=== PATIENT | female | born 1950 | race Caucasian/White ===

== ENCOUNTER → 2018-03-29 08:06 | Outpatient (CLI) | payer MEDICARE, OTHER, SELFPAY ==
--- NOTE | 2018-03-29 | DI.US.S_ITS ---
PROCEDURE: US PELVIC COMPLETE INDICATIONS: RIGHT PELVIC PAIN TECHNIQUE: Real-time scanning was performed of the pelvic organs, with image documentation. Additional endovaginal scanning was necessary due to incomplete visualization of the adnexal and endometrial structures by transabdominal scanning. COMPARISON: None. FINDINGS: Transabdominal scanning: Limited scanning through the kidneys shows no hydronephrosis. No pathologic free abdominal or pelvic fluid. Endovaginal scanning: Uterus: Uterus is normal in size at 4.9 x 3.2 x 4.1 cm. The endometrium measures 2.5 mm in combined thickness. Ovaries: The within normal limits bilaterally with simple cyst involving the right ovary measuring 1.5 x 1.2 x 1.9 cm. IMPRESSION: Simple cyst involving the right ovary. Dictated by: Flaco RUGGIERO Interpreted: Manny Martinez MD on 03/29/2018 at 10:24 Approved by: Manny Martinez M.D. on 03/29/2018 at 13:21
== END ==
PROVIDERS: Family Provider Family Medicine; PCP Family Medicine; Visit Provider Family Medicine
DX: N83.201 Unspecified ovarian cyst, right side (principal)
CPT/HCPCS: 76830; 76856

== ENCOUNTER → 2018-03-30 10:32 | Outpatient (CLI) | payer MEDICARE, OTHER, SELFPAY ==
[2018-03-30 11:56] LABS: Blood Urea Nitrogen 12 mg/dL (7-17); Estimated Glomerular Filt Rate > 60.0 mL/min (>60)
== END ==
PROVIDERS: PCP Family Medicine; Visit Provider Specialist
DX: R10.31 Right lower quadrant pain (principal); Z01.812 Encounter for preprocedural laboratory examination
CPT/HCPCS: 36415; 82565; 84520; 87070; 87205; 99212; G0463

== ENCOUNTER → 2018-04-01 09:50 | Outpatient (CLI) | payer MEDICARE, OTHER, SELFPAY ==
--- NOTE | 2018-04-01 | DI.CT.S_ITS ---
PROCEDURE: CT ABDOMEN PELVIS W CON INDICATIONS: CHRONIC RIGHT LOWER QUADRANT PAIN FOR 2 MONTHS TECHNIQUE: After the administration of oral and intravenous contrast, 5 mm thick sections acquired from the diaphragms to the symphysis. 5 mm thick coronal and sagittal reformats were performed. For radiation dose reduction, the following was used: automated exposure control, adjustment of mA and/or kV according to patient size. COMPARISON: None. FINDINGS: Image quality: Excellent. ABDOMEN: Lung bases: Lung bases are clear. Heart size is normal. Solid organs: Liver is normal in size and enhancement. Gallbladder is partially contracted. Biliary system is non-dilated. Pancreas enhances normally. Spleen is normal in size and enhancement. No adrenal nodules. Kidneys are normal in size and enhancement, without hydronephrosis. Peritoneum and bowel: Stomach, small bowel, and colon loops are normal in caliber and wall thickness. No free fluid or air. Normal appendix. Nodes and vessels: No retroperitoneal or mesenteric adenopathy. Aorta and inferior vena cava are normal in caliber. Miscellaneous: No ventral hernias. PELVIS: Genitourinary: Bladder wall thickness is normal. Miscellaneous: No inguinal hernias or adenopathy. Bones: No suspicious bony lesions. Mild diffuse leftward curvature of the lumbar spine. No vertebral body compression fractures. IMPRESSION: 1. No acute process. 2. Normal appendix. Dictated by: Aurea Murray M.D. on 04/01/2018 at 12:55 Approved by: Aurea Murray M.D. on 04/01/2018 at 12:57
== END ==
PROVIDERS: PCP Family Medicine; Visit Provider Specialist
DX: R10.31 Right lower quadrant pain (principal)
CPT/HCPCS: 74177; Q9967

== ENCOUNTER 2018-06-23 07:13 | Day surgery (SDC) | payer MEDICARE, OTHER, SELFPAY ==
[2018-06-23] VITALS (8 sets, daily range): BP systolic 93–128; BP diastolic 57–99; PULSE 51–62; RESP 11–17; TEMP 36.1–36.9; O2SAT 98–100; BMI 20.5
[2018-06-23] MEDS: SODIUM CHLORIDE 0.9% 1,000 ML 200 ML IV (09:19)
--- NOTE | 2018-06-23 10:16 | PM.HP.1 ---
History of Present Illness Date Patient Seen: 06/23/18 Time Patient Seen: 10:16 Chief complaint: colonoscopy [id number] Narrative: Wonderful 67-year-old lady presents today for screening colonoscopy. She reports she had a little bit of abdominal pain a couple of months ago. Her last colonoscopy was about 16 years ago. She denies any change in her bowel habits or any blood in her stool. She denies any unexplained weight loss. She needs colonoscopy as part of her health maintenance program. She does have a family history of colon polyps in a sibling but has no family history of colon cancer Patient History Family & Social History Family History: Reviewed 06/23/18 by Jessica Patel MD Social History: household members spouse Meds Home Medications Medication Instructions Recorded Confirmed Type No Known Home Medications 06/23/18 06/23/18 History Allergies Allergy/AdvReac Type Severity Reaction Status Date / Time No Known Drug Allergies Allergy Verified 06/23/18 07:44 Review of Systems Review of Systems All systems reviewed & are unremarkable except as noted in HPI and below Exam Vital Signs (past 8 hours): - 06/23/18 07:44 Temperature 97.2 F L Pulse Rate 52 L Respiratory Rate 16 Blood Pressure 128/99 H Pulse Oximetry 100 Narrative Exam Narrative: Very pleasant well-nourished well-developed 67-year-old lady who appears much younger than her stated age HEENT: Normocephalic and atraumatic, pupils equal round reactive to light accommodation with anicteric sclera Lungs: Clear auscultation bilaterally Heart: Regular rate and rhythm Abdomen: Soft, nontender, active bowel sounds Extremities: Warm well perfused Assessment & Plan Plan: Assessment/Plan Narrative: Wonderful 67-year-old lady here for screening colonoscopy. We discussed risks and benefits of the procedure and she has expressed a desire to complete it today
[2018-06-23] MEDS: MIDAZOLAM 5 MG/5 ML VIAL IV (10:43)
[2018-06-23] MEDS: fentaNYL 250 MCG/5 ML INJ IV (10:44)
--- NOTE | 2018-06-23 10:48 | PM.OP.1 ---
Operative Date/Time/Diagnoses Date of procedure: 06/23/18 Time of procedure: 10:48 Pre-op diagnosis: Screening colonoscopy Post-op diagnosis: same Procedure & Clinicians Procedure: colonoscopy to the cecum Same procedure as scheduled: Yes Indications: last colonoscopy 16 years ago Surgeon: Jessica Patel Anesthesia Type: Sedation (Versed 6 mg; fentanyl 150 mcg) Operative Notes Findings: 1. Moderately poor prep 2. No polyps or mass lesions 3. No AV malformations 4. Very mild diverticulosis limited to the sigmoid region 5. Tortuous and atonic colon 7. Grade 2 internal hemorrhoids Specimen(s): none sent Procedure in detail: After obtaining informed consent, the patient was brought to the GI suite and placed in the left lateral decubitus position on the examination table. After placement of appropriate monitors, the patient was given incremental doses of Versed and Fentanyl until an appropriate level of sedation was achieved. A time out was held per SCOAP protocol. A digital rectal examination was performed and did not reveal any masses or obstructing lesions. The colonoscope was gently passed into the patient's anus and the entire colon navigated to the level of the cecum with minimal difficulty. Once in the cecum, the scope was withdrawn being sure to go before and beyond all mucosal folds and prominences and get an excellent examination. The findings are noted above. At the level of the rectal vault, the scope was retroflexed and the internal anal canal was examined. The scope was straightened and air aspirated from the colon. The instrument was removed from the patient's body and the procedure was concluded. The patient was allowed to awaken from sedation without difficulty and taken to the post-anesthesia care unit in good condition. Total sedation time 23 min Total withdrawal time 9 min Complications: none Condition: stable Disposition: PACU Plan for aftercare: 1. Discharge to home 2. Plan for next colonoscopy in 10 years or as clinically indicated
== END 2018-06-23 11:38 | disposition home or self-care (01) ==
PROVIDERS: Surgery; Family Provider Family Medicine; PCP Family Medicine; Visit Provider Specialist
PROC: 0DJD8ZZ Inspection of Lower Intestinal Tract, Via Natural or Artificial Opening Endoscopic (ICD-10-PCS; CPT 45378; principal; 2018-06-23 08:45)
DX: Z12.11 Encounter for screening for malignant neoplasm of colon (principal); K57.30 Diverticulosis of large intestine without perforation or abscess without bleeding; K64.1 Second degree hemorrhoids
CPT/HCPCS: G0121; 99152; 99153; J2250; J3010

== ENCOUNTER → 2019-02-23 08:58 | Outpatient (CLI) | payer MEDICARE, OTHER, SELFPAY ==
--- NOTE | 2019-02-23 | DI.MG.S_ITS ---
BILATERAL DIGITAL SCREENING MAMMOGRAM 3D/2D WITH CAD: 02/23/2019 CLINICAL: Routine screening. Family history of breast cancer. Comparison is made to exams dated: 12/13/2017 mammogram, 10/12/2016 mammogram, 09/16/2015 mammogram, and 09/10/2014 mammogram - [facility]. The tissue of both breasts is extremely dense, which lowers the sensitivity of mammography. Current study was also evaluated with a Computer Aided Detection (CAD) system. No significant masses, calcifications, or other findings are seen in either breast. There has been no significant interval change. IMPRESSION: NEGATIVE There is no mammographic evidence of malignancy. A 1 year screening mammogram is recommended. This exam was interpreted at Station ID: [id number]. NOTE: For mammograms, a report in lay terms will be sent to the patient. Approximately 15% of breast malignancies will not be visualized mammographically. In the management of a palpable breast mass, a negative mammogram must not discourage biopsy of a clinically suspicious lesion. Electronically Signed By: Richard cornell/sahra:02/23/2019 12:52:22 letter sent: Normal Exam ACR BI-RADS Category 1: Negative 3341F
--- NOTE | 2019-02-23 | DI.MRI.S_ITS ---
PROCEDURE: MR KNEE LT WO CON INDICATIONS: LEFT KNEE PAIN TECHNIQUE: Noncontrast sagittal PD fast spin echo and T2 fast spin echo with fat saturation, sagittal 3-D FLASH with fat saturation; coronal T1 spin echo and PD fast spin echo with fat saturation, and axial PD fast spin echo with fat saturation through the knee. COMPARISON: None. FINDINGS: Image quality: Excellent. Menisci: Lateral meniscus intact. Medial meniscal tear involving the posterior root, posterior horn and possibly the body. There is partial extrusion. Cruciate ligaments: The anterior and posterior cruciate ligaments appear intact. Medial structures: The medial collateral ligament appears intact. The posterior oblique ligament, semimembranosus tendon insertions, oblique popliteal ligament, and meniscocapsular junction appear intact. Visualized portions of the pes anserinus tendons appear normal. No abnormal bursal fluid. Lateral structures: Mild thickening of the proximal lateral collateral ligament with internal signal change suggesting age-indeterminate low-grade sprain. Biceps femoris tendon appears intact. The popliteus tendon appears normal; the popliteofibular ligament appears intact. The posterosuperior and anteroinferior popliteomeniscal fascicles appear intact. The arcuate and fabellofibular ligaments appear intact, on either side of the lateral inferior geniculate artery. Iliotibial band appears normal. Anterior structures: Mild distal quadriceps tendinopathy and internal T2 hyperintensity. Prepatellar and superficial infrapatellar subcutaneous edema/fluid. Although, this is minimal. Patellar tendon appears intact. Hoffa's fat pad unremarkable. Patellar alignment within normal limits. Bones and cartilage: No focal marrow contusion or discrete low signal fracture line. Within the medial compartment, minimal partial-thickness loss of the femoral articular cartilage. Within the lateral compartment, the articular cartilage appears grossly intact. Within the patellofemoral compartment, diffuse surface fraying and partial-thickness loss of the patellar and femoral trochlear cartilage. There is subchondral marrow edema/cystic change. Joint space: Moderate joint effusion. Large Woodward cyst is seen measuring 6 cm in the cephalocaudad dimension. No intra-articular loose body identified. IMPRESSION: Medial meniscal tear involving the posterior root, posterior horn and body with partial extrusion. Large Woodward's cyst. Moderate joint effusion. Mild distal quadriceps insertional tendinopathy. Mild degenerative joint disease. Dictated by: Buster Kendall M.D. on 02/23/2019 at 11:15 Approved by: Buster Kendall M.D. on 02/23/2019 at 11:23
== END ==
PROVIDERS: Family Provider Family Medicine; PCP Family Medicine; Visit Provider Family Medicine
DX: Z12.31 Encounter for screening mammogram for malignant neoplasm of breast (principal); Z80.3 Family history of malignant neoplasm of breast; M25.562 Pain in left knee; S83.242A Other tear of medial meniscus, current injury, left knee, initial encounter; M71.22 Synovial cyst of popliteal space [Baker], left knee; M25.462 Effusion, left knee; M17.12 Unilateral primary osteoarthritis, left knee
CPT/HCPCS: 73721; 77063; 77067

== ENCOUNTER → 2019-02-28 07:45 | Outpatient (CLI) | payer MEDICARE, OTHER, SELFPAY ==
[2019-02-28 08:05] LABS: Add Manual Diff / Slide Review NO; Basophils Absolute Auto 0 /uL (0-100); Basophils Percent Auto 0.4 % (0-2); Eosinophils Absolute Auto 0 /uL (0-450); Eosinophils Percent Auto 1.1 % (2-4); Hematocrit 41.2 % (36-46); Hemoglobin 14.1 g/dL (12.0-16.0); Lymphocytes Absolute Auto 1700 /uL (1100-4500); Lymphocytes Percent Auto 45.6 % (25-40); Mean Corpuscular HGB Conc 34.2 % (30-36); Mean Corpuscular Hemoglobin 31.7 PG (26-34); Mean Corpuscular Volume 92.6 fL (80-100); Monocytes Absolute Auto 300 /uL (0-900); Neutrophils Absolute Auto 1700 /uL (1500-7000); Neutrophils Percent Auto 43.9 % (50-75); Platelet Count 264 X10^3/uL (150-400); Red Blood Cell Count 4.45 X10^6/uL (4.0-5.2); Red Cell Distribution Width 12.4 % (11.6-14.8); White Blood Cell Count 3.8 X10^3/uL (4.5-11.0)
[2019-02-28 08:19] LABS: Alanine Aminotransferase 22 IU/L (9-52); Albumin 4.8 g/dL (3.5-5.0); Albumin Globulin Ratio 1.4 (1.0-2.8); Alkaline Phosphatase 84 U/L (38-126); Aspartate Aminotransferase 28 IU/L (14-36); Bilirubin Total 0.5 mg/dL (0.2-1.3); Blood Urea Nitrogen 12 mg/dL (7-17); Calcium 9.5 mg/dL (8.4-10.2); Carbon Dioxide 29 mmol/L (22-32); Chloride 99 mmol/L (98-107); Cholesterol 255 mg/dL (140-199); Estimated Glomerular Filt Rate > 60.0 mL/min (>60); Globulin 3.4 g/dL (1.7-4.1); Glucose 96 mg/dL (80-110); HDL Cholesterol 71 mg/dL (40-60); HEMOLYSIS < 15 (0-50); LDL Cholesterol Calculated 161 mg/dL (<100); Potassium 4.2 mmol/L (3.4-5.1); Sodium 138 mmol/L (137-145); Total Protein 8.2 g/dL (6.3-8.2); Triglycerides 113 mg/dL (35-150)
[2019-02-28 09:46] LABS: Hep C Virus Ab w/Reflex Quant NEGATIVE s/c (NEGATIVE)
== END ==
PROVIDERS: PCP Family Medicine; Visit Provider Family Medicine
DX: E78.5 Hyperlipidemia, unspecified (principal); Z00.00 Encounter for general adult medical examination without abnormal findings
CPT/HCPCS: 36415; 80053; 80061; 85025; 86803

== ENCOUNTER → 2019-03-28 09:54 | Outpatient (CLI) | payer MEDICARE, OTHER, SELFPAY ==
--- NOTE | 2019-03-28 | DI.US.S_ITS ---
PROCEDURE: US PELVIC COMPLETE INDICATIONS: RIGHT OVARIAN CYST TECHNIQUE: Real-time scanning was performed of the pelvic organs, with image documentation. Additional endovaginal scanning was necessary due to incomplete visualization of the adnexal and endometrial structures by transabdominal scanning. COMPARISON: [facility], , US PELVIC COMPLETE, 03/29/2018, 8:18. FINDINGS: Transabdominal scanning: Limited scanning through the kidneys shows no hydronephrosis. No pathologic free abdominal or pelvic fluid. Endovaginal scanning: Uterus: Uterus is normal in size at 8.5 x 2.7 x 4.0 cm. The endometrium measures 1.6 mm in combined thickness. Complex endocervical fluid. Ovaries: Ovaries normal in size measuring 2.4 x 1.3 x 2.0 cm on the right and 2.8 x 1.8 x 1.3 cm on the left. 2 simple cysts involve the right ovary, largest measuring 1.8 cm with the smaller demonstrating a smaller daughter cyst. Left ovary is normal. There are bilateral scattered non-shadowing echogenic foci likely of no clinical significance. IMPRESSION: 1. Bilateral ovarian cysts, largest measuring up to 18 mm. Dictated by: Flaco RUGGEIRO Interpreted: Leann Brink MD on 03/28/2019 at 15:38 Approved by: Leann Brink M.D. on 03/28/2019 at 16:03
== END ==
PROVIDERS: PCP Family Medicine; Visit Provider Family Medicine
DX: N83.291 Other ovarian cyst, right side (principal); N83.202 Unspecified ovarian cyst, left side
CPT/HCPCS: 76830; 76856

== ENCOUNTER → 2020-05-22 17:03 | Outpatient (CLI) | payer MEDICARE, OTHER, SELFPAY ==
--- NOTE | 2020-05-22 17:08 | DI.US.S_ITS ---
PROCEDURE: US PELVIC COMPLETE INDICATIONS: OTHER OVARIAN CYST RIGHT SIDE SCREENING TECHNIQUE: Real-time scanning was performed of the pelvic organs, with image documentation. Additional endovaginal scanning was necessary due to incomplete visualization of the adnexal and endometrial structures by transabdominal scanning. COMPARISON: [facility], , US PELVIC COMPLETE, 03/28/2019, 10:37. FINDINGS: Transabdominal scanning: Limited scanning through the kidneys shows no hydronephrosis. No pathologic free abdominal or pelvic fluid. Endovaginal scanning: Uterus: Uterus is anteverted and anteflexed, and normal in size at 5.5 x 3.1 x 4.1 cm. The endometrium measures one mm in combined thickness. Trace fluid in the cul-de-sac. Ovaries: The left ovary measures 2.5 x 1.3 x 1.2 cm for a volume of 2.0 cc. The right ovary measures 3.7 x 1.8 x 1.9 for a volume of 6.6 cc. There is a simple cyst associated with right ovary measuring 2.2 x 1.8 x 1.3 cm. No other suspicious adnexal masses. IMPRESSION: 1. Slight enlargement of a right ovarian cyst compared to the prior study. The cyst remains simple. Annual follow-up is recommended. 2. Resolution of one of the previously seen right ovarian cysts. 3. Stable uterine morphology and normal left ovary. Dictated by: Magnolia Leo M.D. on 05/23/2020 at 8:44 Approved by: Magnolia Leo M.D. on 05/23/2020 at 8:50
--- NOTE | 2020-05-22 17:09 | DI.MG.S_ITS ---
BILATERAL DIGITAL SCREENING MAMMOGRAM 3D/2D WITH CAD: 05/22/2020 CLINICAL: Routine screening. Comparison is made to exams dated: 02/23/2019 mammogram, 12/13/2017 mammogram, and 10/12/2016 mammogram - [facility]. The tissue of both breasts is heterogeneously dense. This may lower the sensitivity of mammography. Current study was also evaluated with a Computer Aided Detection (CAD) system. There are benign calcifications in both breasts. No significant masses, calcifications, or other findings are seen in either breast. There has been no significant interval change. IMPRESSION: There is no mammographic evidence of malignancy. A 1 year screening mammogram is recommended. This exam was interpreted at Station ID: [id number]. NOTE: For mammograms, a report in lay terms will be sent to the patient. Approximately 15% of breast malignancies will not be visualized mammographically. In the management of a palpable breast mass, a negative mammogram must not discourage biopsy of a clinically suspicious lesion. Electronically Signed By: Gadiel serrano/sahra:05/22/2020 18:14:58 letter sent: Normal Exam ACR BI-RADS Category 2: Benign Finding(s) 3342F
== END ==
PROVIDERS: PCP Family Medicine; Referring Provider Family Medicine; Visit Provider Family Medicine
DX: Z12.31 Encounter for screening mammogram for malignant neoplasm of breast (principal); N83.291 Other ovarian cyst, right side
CPT/HCPCS: 76830; 76856; 77063; 77067

== ENCOUNTER → 2020-09-09 09:25 | Outpatient (CLI) | payer MEDICARE, OTHER, SELFPAY ==
[2020-09-09 10:30] LABS: Add Manual Diff / Slide Review NO; Basophils Absolute Auto 0 /uL (0-100); Basophils Percent Auto 0.4 % (0-2); Eosinophils Absolute Auto 0 /uL (0-450); Eosinophils Percent Auto 0.3 % (2-4); Hematocrit 39.1 % (36-46); Hemoglobin 13.5 g/dL (12.0-16.0); Lymphocytes Absolute Auto 1300 /uL (1100-4500); Lymphocytes Percent Auto 28.2 % (25-40); Mean Corpuscular HGB Conc 34.5 % (30-36); Mean Corpuscular Hemoglobin 32.1 PG (26-34); Mean Corpuscular Volume 92.8 fL (80-100); Monocytes Absolute Auto 400 /uL (0-900); Monocytes Percent Auto 7.8 % (3-14); Neutrophils Absolute Auto 3000 /uL (1500-7000); Neutrophils Percent Auto 63.3 % (50-75); Platelet Count 227 X10^3/uL (150-400); Red Blood Cell Count 4.21 X10^6/uL (4.0-5.2); Red Cell Distribution Width 12.2 % (11.6-14.8); White Blood Cell Count 4.7 X10^3/uL (4.5-11.0)
[2020-09-09 10:53] LABS: Alanine Aminotransferase 16 IU/L (<35); Albumin 4.4 g/dL (3.5-5.0); Albumin Globulin Ratio 1.4 (1.0-2.8); Alkaline Phosphatase 77 U/L (38-126); Aspartate Aminotransferase 25 IU/L (14-36); Bilirubin Total 0.6 mg/dL (0.2-1.3); Blood Urea Nitrogen 12 mg/dL (7-17); Calcium 9.3 mg/dL (8.4-10.2); Carbon Dioxide 31 mmol/L (22-32); Chloride 102 mmol/L (98-107); Cholesterol 222 mg/dL (140-199); Estimated Glomerular Filt Rate > 60.0 mL/min (>60); Globulin 3.2 g/dL (1.7-4.1); Glucose 102 mg/dL (80-110); HDL Cholesterol 75 mg/dL (40-60); HEMOLYSIS < 15 (0-50); LDL Cholesterol Calculated 128 mg/dL (<100); Potassium 3.7 mmol/L (3.4-5.1); Sodium 137 mmol/L (137-145); Total Protein 7.6 g/dL (6.3-8.2); Triglycerides 95 mg/dL (35-150)
[2020-09-09 15:15] LABS: Thyroid Stimulating Hormone 1.11 uIU/mL (0.47-4.68)
== END ==
PROVIDERS: PCP Family Medicine; Referring Provider Family Medicine; Visit Provider Family Medicine
DX: E78.5 Hyperlipidemia, unspecified (principal)
CPT/HCPCS: 36415; 80053; 80061; 84443; 85025

== ENCOUNTER → 2020-11-26 16:54 | Outpatient (CLI) | payer MEDICARE, OTHER, SELFPAY ==
[2020-11-26] MEDS: COVID-19 VACC #1, MRNA(MOD) 100 MCG/0.5 ML VIAL IM (17:02)
== END ==
PROVIDERS: PCP Family Medicine; Visit Provider Internal Medicine
DX: Z23 Encounter for immunization (principal)
CPT/HCPCS: 0011A; 91301

== ENCOUNTER → 2020-12-25 11:00 | Outpatient (CLI) | payer MEDICARE, OTHER, SELFPAY ==
[2020-12-25] MEDS: COVID-19 VACC #2, MRNA(MOD) 100 MCG/0.5 ML VIAL IM (11:09)
== END ==
PROVIDERS: PCP Family Medicine; Visit Provider Internal Medicine
DX: Z23 Encounter for immunization (principal)
CPT/HCPCS: 0012A; 91301

== ENCOUNTER → 2021-06-28 15:36 | Outpatient (CLI) | payer MEDICARE, OTHER, SELFPAY ==
--- NOTE | 2021-06-28 15:40 | DI.MG.S_ITS ---
BILATERAL DIGITAL SCREENING MAMMOGRAM 3D/2D WITH CAD: 06/28/2021 CLINICAL: Routine screening. Family history of breast cancer. Comparison is made to exams dated: 05/22/2020 mammogram, 02/23/2019 mammogram, and 12/13/2017 mammogram - [facility]. The tissue of both breasts is heterogeneously dense. This may lower the sensitivity of mammography. Current study was also evaluated with a Computer Aided Detection (CAD) system. There are calcifications in both breasts. No significant masses, calcifications, or other findings are seen in either breast. There has been no significant interval change. IMPRESSION: BENIGN There is no mammographic evidence of malignancy. A 1 year screening mammogram is recommended. This exam was interpreted at Station ID: [id number]. NOTE: For mammograms, a report in lay terms will be sent to the patient. Approximately 15% of breast malignancies will not be visualized mammographically. In the management of a palpable breast mass, a negative mammogram must not discourage biopsy of a clinically suspicious lesion. Electronically Signed By: Gadiel Lozano M.D. at/:06/30/2021 07:22:48 letter sent: Normal Exam ACR BI-RADS Category 2: Benign Finding(s) 3342F
== END ==
PROVIDERS: PCP Family Medicine; Referring Provider Family Medicine; Visit Provider Family Medicine
DX: Z12.31 Encounter for screening mammogram for malignant neoplasm of breast (principal); Z80.3 Family history of malignant neoplasm of breast
CPT/HCPCS: 77063; 77067

== ENCOUNTER → 2021-08-13 10:38 | Outpatient (CLI) | payer MEDICARE, OTHER, SELFPAY ==
--- NOTE | 2021-08-13 | DI.US.S_ITS ---
PROCEDURE: US PELVIC COMPLETE INDICATIONS: PAIN TECHNIQUE: Real-time scanning was performed of the pelvic organs, with image documentation. Additional endovaginal scanning was necessary due to incomplete visualization of the adnexal and endometrial structures by transabdominal scanning. COMPARISON: [facility], CT, CT ABDOMEN PELVIS W CON, 04/01/2018, 10:39. [facility], US, US PELVIC COMPLETE, 03/29/2018, 8:18. [facility], US PELVIC COMPLETE, 03/28/2019, 10:37. [facility], PELVIC COMPLETE, 05/22/2020, 17:22. FINDINGS: Uterus: Uterus is normal in size at 5.9 X 3.3 X 4 cm. The endometrium measures 2 mm in combined thickness. Ovaries: The right ovary measures 2.5 x 1.2 x 3.5 cm. Associated with the right ovary, there are 3 simple appearing cysts, with the largest measuring 2.4 x 1.3 x 1.4 cm. The left ovary measures 2.2 x 1 x 1.1 cm and demonstrates an unremarkable appearance. Prominent left adnexal vessels are seen. Other: No pathologic free abdominal or pelvic fluid. IMPRESSION: Simple appearing cysts are seen associated with the right ovary, with the largest of the cysts measuring 2.4 x 1.3 x 1.4 cm. This largest cyst measured 2.2 x 1.8 x 1.3 cm on the 2020 examination. Continued annual follow-up is recommended. Prominent left adnexal vessels are seen. Please consider adnexal varices. A Dictated by: Jason Cummings M.D. on 08/13/2021 at 11:08 Approved by: Jason Cummings M.D. on 08/13/2021 at 11:14
== END ==
PROVIDERS: PCP Family Medicine; Referring Provider Family Medicine; Visit Provider Family Medicine
DX: R10.2 Pelvic and perineal pain (principal); N83.291 Other ovarian cyst, right side
CPT/HCPCS: 76830; 76856

== ENCOUNTER → 2021-09-11 08:06 | Outpatient (CLI) | payer MEDICARE, OTHER, SELFPAY ==
[2021-09-11 09:14] LABS: Add Manual Diff / Slide Review NO; Basophils Absolute Auto 0 /uL (0-100); Basophils Percent Auto 0.4 % (0-2); Eosinophils Absolute Auto 0 /uL (0-450); Eosinophils Percent Auto 0.5 % (2-4); Hematocrit 39.6 % (36-46); Hemoglobin 13.7 g/dL (12.0-16.0); Lymphocytes Absolute Auto 1700 /uL (1100-4500); Lymphocytes Percent Auto 33.7 % (25-40); Mean Corpuscular HGB Conc 34.5 % (30-36); Mean Corpuscular Hemoglobin 31.6 PG (26-34); Mean Corpuscular Volume 91.7 fL (80-100); Monocytes Absolute Auto 300 /uL (0-900); Monocytes Percent Auto 6.6 % (3-14); Neutrophils Absolute Auto 3000 /uL (1500-7000); Neutrophils Percent Auto 58.8 % (50-75); Platelet Count 266 X10^3/uL (150-400); Red Blood Cell Count 4.32 X10^6/uL (4.0-5.2); Red Cell Distribution Width 12.5 % (11.6-14.8); White Blood Cell Count 5.2 X10^3/uL (4.5-11.0)
[2021-09-11 10:19] LABS: Alanine Aminotransferase 19 IU/L (<35); Albumin 4.5 g/dL (3.5-5.0); Albumin Globulin Ratio 1.6 (1.0-2.8); Alkaline Phosphatase 79 U/L (38-126); Aspartate Aminotransferase 27 IU/L (14-36); BUN Creatinine Ratio 14.3 (6-22); Bilirubin Total 0.6 mg/dL (0.2-1.3); Blood Urea Nitrogen 9 mg/dL (7-17); Calcium 9.4 mg/dL (8.4-10.2); Carbon Dioxide 27 mmol/L (22-32); Chloride 98 mmol/L (98-107); Cholesterol 214 mg/dL (140-199); Estimated Glomerular Filt Rate > 60.0 mL/min (>60); Globulin 2.9 g/dL (1.7-4.1); Glucose 102 mg/dL (80-110); HDL Cholesterol 84 mg/dL (40-60); HEMOLYSIS < 15 (0-50); LDL Cholesterol Calculated 114 mg/dL (<100); Potassium 3.8 mmol/L (3.4-5.1); Sodium 135 mmol/L (137-145); Total Protein 7.4 g/dL (6.3-8.2); Triglycerides 78 mg/dL (35-150)
[2021-09-11 10:44] LABS: Thyroid Stimulating Hormone 1.76 uIU/mL (0.47-4.68)
== END ==
PROVIDERS: PCP Family Medicine; Referring Provider Family Medicine; Visit Provider Family Medicine
DX: I73.00 Raynaud's syndrome without gangrene (principal); E78.5 Hyperlipidemia, unspecified; R01.1 Cardiac murmur, unspecified
CPT/HCPCS: 36415; 80053; 80061; 84443; 85025

== ENCOUNTER 2022-05-05 10:37 | Day surgery (SDC) | payer MEDICARE, OTHER, SELFPAY ==
[2022-05-05 11:07] LABS: COVID19 -Nasal RAPID Negative (Negative)
[2022-05-05] MEDS: LACTATED RINGERS 1,000 ML 200 ML IV (11:07)
[2022-05-05 11:09] VITALS: BP 136/73; PULSE 52; RESP 16; TEMP 36.8; O2SAT 100; BMI 22.3
[2022-05-05 11:20] VITALS: BMI 22.3
--- NOTE | 2022-05-05 11:51 | PM.PREOP ---
Pre-operative Note Interval Note History & Physical reviewed/Exam performed by Physician: Yes Changes to H&P: No
[2022-05-05] MEDS: MIDAZOLAM 5 MG/5 ML VIAL 6 MG IV (12:27)
[2022-05-05] MEDS: fentaNYL 250 MCG/5 ML INJ 200 MCG IV (12:27)
--- NOTE | 2022-05-05 12:43 | PM.OP.COLON ---
Operative Date/Time/Diagnoses Date of procedure: 05/05/22 Time of procedure: 12:43 Pre-op diagnosis: rectal bleeding Post-op diagnosis: other (internal hemorrhoids) Procedure & Clinicians Study performed: colonoscopy and hemorrhoidal banding Same procedure as scheduled: Yes Indications: rectal bleeding Surgeon: Jonatan Lewis Procedure Notes Procedure in detail: Medications: Conscious sedation using 6mg IV midazolam and 200mcg IV of fentanyl The history and physical was performed/updated and the patient is ASA class is 2. The procedure was discussed in detail with the patient. Potential risks complications including infection, bleeding, missed diagnosis, perforation, need for surgery, and were explained. Their questions were answered and informed consent was obtained. Patient was brought to the procedure room and placed standard monitoring equipment. The patient's vital signs were monitored continuously throughout the entire procedure. Prior to starting time-out was performed. The patient was placed in the left lateral recumbent position. Procedural sedation was administered. Examination began with a thorough inspection of the perianal area there was no evidence of fissures, fistulae, external hemorrhoids or cutaneous malignancy. The colonoscopy scope was then placed into the anal canal and was advanced to the cecum, which was identified by the ileocecal valve, the appendiceal orifice and the confluence of the taenia. The scope was then slowly withdrawn examining colon thoroughly in all directions, irrigating it of any residual stool. FINDINGS 1. Tortuous colon 2. Internal hemorrhoids 3. No masses or polyps The patient tolerated the procedure well. They will be discharged once criteria are met. The prep was of good/excellent quality. The withdrawl time was 10 minutes. The sedation time was 30minutes. Following completion of the colonoscopy a hemorrhoidal banding was performed. The left lateral and right posterior columns were prominent grade 2 hemorrhoids. They were individually grasped and then doubly ligated at their bases. She tolerated procedure well. Specimen(s): none sent Complications: none Impression: Internal hemorrhoids Post-procedure Recommendations: Colonoscopy in 10 years and High fiber diet Disposition: same day surgery
[2022-05-05 12:44] VITALS: BP 117/63; PULSE 53; RESP 17; TEMP 36.2; O2SAT 97
[2022-05-05 12:49] VITALS: BP 109/63; PULSE 52; RESP 12; O2SAT 97
[2022-05-05 12:54] VITALS: BP 116/63; PULSE 49; RESP 10; TEMP 36.6; O2SAT 97
[2022-05-05 13:03] VITALS: BP 117/62; PULSE 48; RESP 16; TEMP 36.6; O2SAT 97
--- NOTE | 2022-05-05 13:14 | SUR.PHASEII ---
Discharge instructions reviewed with pt and she verbalized understanding.
--- NOTE | 2022-05-05 13:21 | SUR.PHASEII ---
pt feeling nauseous. Debbie HILL notified and verbal for 4mg zofran PO taken.
[2022-05-05] MEDS: ONDANSETRON 4 MG ODT PO (13:27)
== END 2022-05-05 13:57 | disposition home or self-care (01) ==
PROVIDERS: PCP Family Medicine; Referring Provider Surgery; Visit Provider Surgery
PROC: 0DJD8ZZ Inspection of Lower Intestinal Tract, Via Natural or Artificial Opening Endoscopic (ICD-10-PCS; CPT 45378; principal; 2022-05-05 11:45)
DX: K64.1 Second degree hemorrhoids (principal); Z20.822 Contact with and (suspected) exposure to COVID-19
CPT/HCPCS: 45398; 87635; 99152; 99153; C9803; J2250; J3010

== ENCOUNTER → 2022-08-12 09:54 | Outpatient (CLI) | payer MEDICARE, OTHER, SELFPAY ==
--- NOTE | 2022-08-12 | DI.MG.S_ITS ---
BILATERAL DIGITAL SCREENING MAMMOGRAM 3D/2D WITH CAD: 08/12/2022 CLINICAL: Routine screening. Family history of breast cancer. Comparison is made to exams dated: 06/28/2021 mammogram, 05/22/2020 mammogram, 02/23/2019 mammogram, 12/13/2017 mammogram, and 10/12/2016 mammogram - [facility]. Both breasts are heterogeneously dense, which may obscure small masses (category c / 51-75% glandular tissue). Current study was also evaluated with a Computer Aided Detection (CAD) system. There are benign post operative findings in the right breast. No significant masses, calcifications, or other findings are seen in either breast. There has been no significant interval change. IMPRESSION: BENIGN There is no mammographic evidence of malignancy. A 1 year screening mammogram is recommended. Based on Tyrer-Cuzick model (a risk assessment model), the patient's lifetime risk is 32.2% and her 10 year risk is 20.4%. If a patient has an elevated risk, a more comprehensive evaluation should be considered and/or a referral to a genetic counselor. The [place] [employer], [employer], and NCCN Guidelines advise the consideration of Breast MRI as an adjunct to screening mammography in patients whose Lifetime risk to develop breast cancer is 20% or higher. This exam was interpreted at Station ID: [id number]. NOTE: For mammograms, a report in lay terms will be sent to the patient. Approximately 15% of breast malignancies will not be visualized mammographically. In the management of a palpable breast mass, a negative mammogram must not discourage biopsy of a clinically suspicious lesion. Electronically Signed By: Timothy howard/sahra:08/12/2022 13:44:22 letter sent: Normal Exam ACR BI-RADS Category 2: Benign Finding(s) 3342F
== END ==
PROVIDERS: Family Provider Family Medicine; PCP Family Medicine; Referring Provider Family Medicine; Visit Provider Family Medicine
DX: Z12.31 Encounter for screening mammogram for malignant neoplasm of breast (principal); Z80.3 Family history of malignant neoplasm of breast
CPT/HCPCS: 77063; 77067

== ENCOUNTER 2022-09-23 09:00 | Outpatient (RCR) | payer MEDICARE, OTHER, SELFPAY ==
--- NOTE | 2022-08-14 21:25 | PT.OIE ---
Current Diagnoses Other muscle spasm (08/14/22) Past Medical History (Last Reviewed 04/21/22 @ 16:09 by Jonatan Lewis MD) Hearing loss Ovarian cyst Tremor of left hand Past Surgical History (Last Reviewed 04/21/22 @ 16:09 by Jonatan Lewis MD) H/O breast biopsy History of tonsillectomy Visit Care Team Role Provider Type Gita Noel MD Family Provider Physician Primary Care Provider Specialty: Family Practice Address: [address] [place] [address], [facility] [place], [place], [facility] Email: [email or web address] Lizbeth Dumas MD Attending Provider Non-Staff Referring Provider Specialty: Medical Address: [address] [place] [address], [facility] Email: Physical Therapy Initial Evaluation PT-OP-A Visit Information Start: 08/13/22 21:32 Freq: Status: Active Protocol: Document 08/14/22 08:15 AMB (Rec: 08/14/22 14:26 AMB [id number]) Out-Patient Physical Therapy Visit Information Visit Information Visit Type Initial Evaluation Visit Start Time 08:15 Visit Stop Time 09:00 Total Visit Minutes 45 Visit Number 1 PT-OP-B Current Condition Start: 08/13/22 21:32 Freq: Status: Active Protocol: Document 08/14/22 08:20 AMB (Rec: 08/14/22 08:59 AMB [id number]) Current Condition History of Current Condition Onset Date 05/05/22 Current Complaints Painful anus s/p surgery History of Current Condition Had a colonoscopy and banded internal hemhorroids and then had an anal fissure. Fissure is healed now but still having discomfort riding the bike and can linger for a while, the next day is feeling ok. No painful bowel movements currently. Is wondering if she has prolapse. Surgery for urethral sling is 15-20 years old and was having urinary leaking before that. Did have natural childbirth, no tearing or instrument assistance. Stinging in the anus frequent but not constant . Worse after riding the bike or sitting. Personal Factors Other Personal Factors That May Effect External hemorrhoid s/p Therapy/Recovery colonoscopy PT-OP-I Pelvic Floor Start: 08/13/22 21:32 Freq: Status: Active Protocol: Document 08/14/22 08:15 AMB (Rec: 08/14/22 14:26 AMB [id number]) Pelvic Floor Assessment Bowel Bowel Surgery Yes: colonoscopy Pelvic Clock Inter-Rectal Assessment Good contraction for 5 sec. Pain R>L, forward flexed coccyx. Comments Pelvic Floor Comments Denies current pain with BM or constipation, but was previously painful. Scoliosis with L shoulder high. PT-OP-T Assessment and Plan Start: 08/13/22 21:32 Freq: Status: Active Protocol: Document 08/14/22 08:15 AMB (Rec: 08/16/22 21:25 AMB [id number]) Physical Therapy Assessment Rehab Potential Rehabilitation Potential Good Evaluation Complexity Number of Personal Factors/Comorbidities 1-2 Number of Body Systems Impaired 1-2 Clinical Presentation at Evaluation Stable Goals One Impairment Pain Short Term Goal (STG) Karuna will move from sit to stand without pain. STG Duration 4 weeks Penitentiary Goal (LTG) Karuna will go on a 20 mile bike ride without anal pain. LTG Duration 8 weeks Assessment Summary Assessment Karuna attends physical therapy with anus pain described as stinging, especially with bike riding, but also just throughout the day since she had an anal fissure. The fissure is now healed, but scar tissue was palpable and tender. She does have a history of stress urinary incontinence for which she had a urethral sling procedure multiple decades ago , which is no longer especially sufficient for her symptoms. Her rectal tone was good, but she did have pain with palpation over internal scar tissue and will benefit from physical therapy to help her manage her rectal pain and scar tissue. Physical Therapy Plan Frequency and Duration Frequency of Treatment 2x/Week Duration of treatment (weeks) 8 Plan of Care Start Date 08/14/22 Plan of Care End Date 10/09/22 Therapeutic Interventions Therapeutic Interventions Home Exercise Program,Manual Therapy,Neuromuscular Re- education,Self-Care/Home Management,Therapeutic Activities,Therapeutic Exercises Modalities Biofeedback,Cold Pack/Ice Massage,Electric Stimulation, Hot Packs Next Visit Focus/Plan Next Note Type Treatment Note Next Visit Plan Recheck scar tissue and coccyx alignment, progress hip opening
--- NOTE | 2022-08-14 21:26 | PT.OPPOC ---
Physical, Occupational & Speech Therapy At [facility] Current Diagnoses Other muscle spasm (08/14/22) Visit Care Team Role Provider Type Gita Noel MD Family Provider Physician Primary Care Provider Specialty: Family Practice Address: [address] [place] [address], [id number] Email: [email or web address] Lizbeth Dumas MD Attending Provider Non-Staff Referring Provider Specialty: Medical Address: [address] [place] [address], [id number] Email: Plan Of Care PT-OP-T Assessment and Plan Start: 08/13/22 21:32 Freq: Status: Active Protocol: Document 08/14/22 08:15 AMB (Rec: 08/16/22 21:25 AMB [id number]) Physical Therapy Assessment Rehab Potential Rehabilitation Potential Good Evaluation Complexity Number of Personal Factors/Comorbidities 1-2 Number of Body Systems Impaired 1-2 Clinical Presentation at Evaluation Stable Goals One Impairment Pain Short Term Goal (STG) Karuna will move from sit to stand without pain. STG Duration 4 weeks Steam Blocker Goal (LTG) Karuna will go on a 20 mile bike ride without anal pain. LTG Duration 8 weeks Assessment Summary Assessment Karuna attends physical therapy with anus pain described as stinging, especially with bike riding, but also just throughout the day since she had an anal fissure. The fissure is now healed, but scar tissue was palpable and tender. She does have a history of stress urinary incontinence for which she had a urethral sling procedure multiple decades ago , which is no longer especially sufficient for her symptoms. Her rectal tone was good, but she did have pain with palpation over internal scar tissue and will benefit from physical therapy to help her manage her rectal pain and scar tissue. Physical Therapy Plan Frequency and Duration Frequency of Treatment 2x/Week Duration of treatment (weeks) 8 Plan of Care Start Date 08/14/22 Plan of Care End Date 10/09/22 Therapeutic Interventions Therapeutic Interventions Home Exercise Program,Manual Therapy,Neuromuscular Re- education,Self-Care/Home Management,Therapeutic Activities,Therapeutic Exercises Modalities Biofeedback,Cold Pack/Ice Massage,Electric Stimulation, Hot Packs Next Visit Focus/Plan Next Note Type Treatment Note Next Visit Plan Recheck scar tissue and coccyx alignment, progress hip opening Plan of Care Dates Plan of Care Start Date 08/14/22 Plan of Care End Date 10/09/22 Electronically Signed by: Kaitlin Silva, PT 08/16/22 0189 If you are in agreement with this Plan of Care, please return a signed and dated copy. I have reviewed this Plan of Care and certify that the skilled therapy services above are required to meet the patient?s needs. Physician Signature Date Printed Name and Credentials Clinical Instructor Signature Printed Name and Credentials
--- NOTE | 2022-08-19 14:13 | PT.OTN ---
Current Diagnoses Other muscle spasm (08/19/22) Physical Therapy Treatment Note PT-OP-A Visit Information Start: 08/13/22 21:32 Freq: Status: Active Protocol: Document 08/19/22 08:14 AMB (Rec: 08/19/22 09:01 AMB [id number]) Out-Patient Physical Therapy Visit Information Visit Information Visit Type Treatment Note Visit Start Time 08:15 Visit Stop Time 09:00 Total Visit Minutes 45 Visit Number 2 PT-OP-B Current Condition Start: 08/13/22 21:32 Freq: Status: Active Protocol: Document 08/14/22 08:20 AMB (Rec: 08/14/22 08:59 AMB [id number]) Current Condition History of Current Condition Onset Date 05/05/22 Current Complaints Painful anus s/p surgery History of Current Condition Had a colonoscopy and banded internal hemheroids and then had an anal fissure. Fissure is healed now but still having discomfort riding the bike and can linger for a while, the next day is feeling ok. No painful bowel movements currently. Is wondering if she has prolapse. Surgery for urethral sling is 15-20 years old and was having urinary leaking before that. Did have natural childbirth, no tearing or instrument assistance. Stinging in the anus frequent but not constant . Worse after riding the bike or sitting. Personal Factors Other Personal Factors That May Effect External hemorrhoid s/p Therapy/Recovery colonoscopy PT-OP-C Subjective Start: 08/13/22 21:32 Freq: Status: Active Protocol: Document 08/19/22 08:14 AMB (Rec: 08/19/22 09:01 AMB [id number]) OP-PT Subjective Patient Comments Patient Comments Stinging worse with bike riding. PT-OP-I Pelvic Floor Start: 08/13/22 21:32 Freq: Status: Active Protocol: Document 08/14/22 08:15 AMB (Rec: 08/14/22 14:26 AMB [id number]) Pelvic Floor Assessment Bowel Bowel Surgery Yes: colonoscopy Pelvic Clock Inter-Rectal Assessment Good contraction for 5 sec. Pain R>L, forward flexed coccyx. Comments Pelvic Floor Comments Denies current pain with BM or constipation, but was previously painful. Scoliosis with L shoulder high. PT-OP-Q Treatments Start: 08/13/22 21:32 Freq: Status: Active Protocol: Document 08/19/22 08:15 AMB (Rec: 08/19/22 14:13 AMB [id number]) Manual Therapy Treatment Soft Tissue Mobilization 1 Body Location obturator Mobilization Type Cross-Friction,Myofascial Release,Sustained Pressure Joint Mobilizations coccyx Direction AP Grade II Body Position Sidelying PT-OP-T Assessment and Plan Start: 08/13/22 21:32 Freq: Status: Active Protocol: Document 08/19/22 08:15 AMB (Rec: 08/19/22 14:13 AMB [id number]) Physical Therapy Assessment Goals One Impairment Pain Short Term Goal (STG) Karuna will move from sit to stand without pain. STG Duration 4 weeks Green Marketer Goal (LTG) Karuna will go on a 20 mile bike ride without anal pain. LTG Duration 8 weeks Assessment Summary Assessment Karuna tolerated internal release well, less restriction today than at eval. Stinging continues with bicycle. Physical Therapy Plan Next Visit Focus/Plan Next Note Type Treatment Note Next Visit Plan Recheck scar tissue and coccyx alignment, progress hip opening
--- NOTE | 2022-08-28 12:00 | PT.OTN ---
Current Diagnoses Other muscle spasm (08/28/22) Physical Therapy Treatment Note PT-OP-A Visit Information Start: 08/13/22 21:32 Freq: Status: Active Protocol: Document 08/28/22 11:17 AMB (Rec: 08/28/22 11:56 AMB [id number]) Out-Patient Physical Therapy Visit Information Visit Information Visit Type Treatment Note Visit Start Time 11:15 Visit Stop Time 12:00 Total Visit Minutes 45 Visit Number 3 PT-OP-B Current Condition Start: 08/13/22 21:32 Freq: Status: Active Protocol: Document 08/14/22 08:20 AMB (Rec: 08/14/22 08:59 AMB [id number]) Current Condition History of Current Condition Onset Date 05/05/22 Current Complaints Painful anus s/p surgery History of Current Condition Had a colonoscopy and banded internal hemheroids and then had an anal fissure. Fissure is healed now but still having discomfort riding the bike and can linger for a while, the next day is feeling ok. No painful bowel movements currently. Is wondering if she has prolapse. Surgery for urethral sling is 15-20 years old and was having urinary leaking before that. Did have natural childbirth, no tearing or instrument assistance. Stinging in the anus frequent but not constant . Worse after riding the bike or sitting. Personal Factors Other Personal Factors That May Effect External hemorrhoid s/p Therapy/Recovery colonoscopy PT-OP-C Subjective Start: 08/13/22 21:32 Freq: Status: Active Protocol: Document 08/28/22 11:17 AMB (Rec: 08/28/22 11:56 AMB [id number]) OP-PT Subjective Patient Comments Patient Comments Yesterday was good, another day was worse. Long bike ride continues to cause increased smptoms the rest of the day. PT-OP-I Pelvic Floor Start: 08/13/22 21:32 Freq: Status: Active Protocol: Document 08/14/22 08:15 AMB (Rec: 08/14/22 14:26 AMB [id number]) Pelvic Floor Assessment Bowel Bowel Surgery Yes: colonoscopy Pelvic Clock Inter-Rectal Assessment Good contraction for 5 sec. Pain R>L, forward flexed coccyx. Comments Pelvic Floor Comments Denies current pain with BM or constipation, but was previously painful. Scoliosis with L shoulder high. PT-OP-Q Treatments Start: 08/13/22 21:32 Freq: Status: Active Protocol: Document 08/28/22 11:15 AMB (Rec: 08/30/22 10:49 AMB [id number]) Manual Therapy Treatment Soft Tissue Mobilization 1 Body Location obturator Mobilization Type Cross-Friction,Myofascial Release,Sustained Pressure PT-OP-T Assessment and Plan Start: 08/13/22 21:32 Freq: Status: Active Protocol: Document 08/28/22 12:49 AMB (Rec: 08/28/22 13:44 AMB [id number]) Physical Therapy Assessment Goals One Impairment Pain Short Term Goal (STG) Karuna will move from sit to stand without pain. STG Duration 4 weeks Senior Living Goal (LTG) Karuna will go on a 20 mile bike ride without anal pain. LTG Duration 8 weeks Assessment Summary Assessment Karuna continues to have stinging with manual therapy. Most at 4-6 level. Continues to want to work on releasing spasm. Physical Therapy Plan Next Visit Focus/Plan Next Note Type Treatment Note Next Visit Plan Recheck scar tissue and coccyx alignment, progress hip opening
--- NOTE | 2022-09-02 13:06 | PT.OTN ---
Current Diagnoses Other muscle spasm (09/02/22) Physical Therapy Treatment Note PT-OP-A Visit Information Start: 08/13/22 21:32 Freq: Status: Active Protocol: Document 09/02/22 09:04 AMB (Rec: 09/02/22 10:09 AMB [id number]) Out-Patient Physical Therapy Visit Information Visit Information Visit Type Treatment Note Visit Start Time 09:00 Visit Stop Time 09:45 Total Visit Minutes 45 Visit Number 4 PT-OP-B Current Condition Start: 08/13/22 21:32 Freq: Status: Active Protocol: Document 08/14/22 08:20 AMB (Rec: 08/14/22 08:59 AMB [id number]) Current Condition History of Current Condition Onset Date 05/05/22 Current Complaints Painful anus s/p surgery History of Current Condition Had a colonoscopy and banded internal hemheroids and then had an anal fissure. Fissure is healed now but still having discomfort riding the bike and can linger for a while, the next day is feeling ok. No painful bowel movements currently. Is wondering if she has prolapse. Surgery for urethral sling is 15-20 years old and was having urinary leaking before that. Did have natural childbirth, no tearing or instrument assistance. Stinging in the anus frequent but not constant . Worse after riding the bike or sitting. Personal Factors Other Personal Factors That May Effect External hemorrhoid s/p Therapy/Recovery colonoscopy PT-OP-C Subjective Start: 08/13/22 21:32 Freq: Status: Active Protocol: Document 09/02/22 13:02 AMB (Rec: 09/02/22 13:06 AMB [id number]) OP-PT Subjective Patient Comments Patient Comments Karuna reports felt improvement in sx for next two days after last PT visit, did go on a bike ride yesterday and it was painful. PT-OP-I Pelvic Floor Start: 08/13/22 21:32 Freq: Status: Active Protocol: Document 08/14/22 08:15 AMB (Rec: 08/14/22 14:26 AMB [id number]) Pelvic Floor Assessment Bowel Bowel Surgery Yes: colonoscopy Pelvic Clock Inter-Rectal Assessment Good contraction for 5 sec. Pain R>L, forward flexed coccyx. Comments Pelvic Floor Comments Denies current pain with BM or constipation, but was previously painful. Scoliosis with L shoulder high. PT-OP-Q Treatments Start: 08/13/22 21:32 Freq: Status: Active Protocol: Document 09/02/22 13:02 AMB (Rec: 09/02/22 13:06 AMB [id number]) Manual Therapy Treatment Soft Tissue Mobilization 1 Body Location obturator Mobilization Type Cross-Friction,Myofascial Release,Sustained Pressure PT-OP-T Assessment and Plan Start: 08/13/22 21:32 Freq: Status: Active Protocol: Document 09/02/22 13:02 AMB (Rec: 09/02/22 13:06 AMB [id number]) Physical Therapy Assessment Goals One Impairment Pain Short Term Goal (STG) Karuna will move from sit to stand without pain. STG Duration 4 weeks Long-Term Goal (LTG) Karuna will go on a 20 mile bike ride without anal pain. LTG Duration 8 weeks Assessment Summary Assessment Karuna continues to have more tenderness R vs L but it is improving with manual stretching. Physical Therapy Plan Frequency and Duration Frequency of Treatment 2x/Week Duration of treatment (weeks) 8 Plan of Care Start Date 08/14/22 Plan of Care End Date 10/09/22 Next Visit Focus/Plan Next Note Type Treatment Note Next Visit Plan Recheck scar tissue and coccyx alignment, progress hip opening
--- NOTE | 2022-09-09 21:07 | PT.OTN ---
Current Diagnoses Other muscle spasm (09/09/22) Physical Therapy Treatment Note PT-OP-A Visit Information Start: 08/13/22 21:32 Freq: Status: Active Protocol: Document 09/09/22 09:01 AMB (Rec: 09/09/22 09:45 AMB [id number]) Out-Patient Physical Therapy Visit Information Visit Information Visit Type Treatment Note Visit Start Time 09:00 Visit Stop Time 09:45 Total Visit Minutes 45 Visit Number 5 PT-OP-B Current Condition Start: 08/13/22 21:32 Freq: Status: Active Protocol: Document 08/14/22 08:20 AMB (Rec: 08/14/22 08:59 AMB [id number]) Current Condition History of Current Condition Onset Date 05/05/22 Current Complaints Painful anus s/p surgery History of Current Condition Had a colonoscopy and banded internal hemheroids and then had an anal fissure. Fissure is healed now but still having discomfort riding the bike and can linger for a while, the next day is feeling ok. No painful bowel movements currently. Is wondering if she has prolapse. Surgery for urethral sling is 15-20 years old and was having urinary leaking before that. Did have natural childbirth, no tearing or instrument assistance. Stinging in the anus frequent but not constant . Worse after riding the bike or sitting. Personal Factors Other Personal Factors That May Effect External hemorrhoid s/p Therapy/Recovery colonoscopy PT-OP-C Subjective Start: 08/13/22 21:32 Freq: Status: Active Protocol: Document 09/09/22 09:00 AMB (Rec: 09/10/22 21:07 [facility] [id number]) OP-PT Subjective Patient Comments Patient Comments Continued improvement noted, continues to have pain especially with bike riding but pain is less intense and continues to feel better after PT. PT-OP-I Pelvic Floor Start: 08/13/22 21:32 Freq: Status: Active Protocol: Document 08/14/22 08:15 AMB (Rec: 08/14/22 14:26 AMB [id number]) Pelvic Floor Assessment Bowel Bowel Surgery Yes: colonoscopy Pelvic Clock Inter-Rectal Assessment Good contraction for 5 sec. Pain R>L, forward flexed coccyx. Comments Pelvic Floor Comments Denies current pain with BM or constipation, but was previously painful. Scoliosis with L shoulder high. PT-OP-Q Treatments Start: 08/13/22 21:32 Freq: Status: Active Protocol: Document 09/09/22 09:00 AMB (Rec: 09/10/22 21:07 AMB [id number]) Manual Therapy Treatment Soft Tissue Mobilization 1 Body Location obturator Mobilization Type Cross-Friction,Myofascial Release,Sustained Pressure Comments rectally PT-OP-T Assessment and Plan Start: 08/13/22 21:32 Freq: Status: Active Protocol: Document 09/09/22 09:00 AMB (Rec: 09/10/22 21:07 AMB [id number]) Physical Therapy Assessment Goals One Impairment Pain Short Term Goal (STG) Karuna will move from sit to stand without pain. STG Duration 4 weeks Senior Living Goal (LTG) Karuna will go on a 20 mile bike ride without anal pain. LTG Duration 8 weeks Assessment Summary Assessment Karuna's tenderness is improving, pt feels that PT is helpful is tolerating more stretching working deeper into musculature rather than just more superficial scar tissue. Physical Therapy Plan Frequency and Duration Frequency of Treatment 2x/Week Duration of treatment (weeks) 8 Plan of Care Start Date 08/14/22 Plan of Care End Date 10/09/22 Therapeutic Interventions Therapeutic Interventions Home Exercise Program,Manual Therapy,Neuromuscular Re- education,Self-Care/Home Management,Therapeutic Activities,Therapeutic Exercises Modalities Biofeedback,Cold Pack/Ice Massage,Electric Stimulation, Hot Packs Next Visit Focus/Plan Next Note Type Treatment Note Next Visit Plan Recheck scar tissue and coccyx alignment, progress hip opening
--- NOTE | 2022-09-16 12:52 | PT.OTN ---
Current Diagnoses Other muscle spasm (09/16/22) Physical Therapy Treatment Note PT-OP-A Visit Information Start: 08/13/22 21:32 Freq: Status: Active Protocol: Document 09/16/22 09:09 AMB (Rec: 09/16/22 09:48 AMB [id number]) Out-Patient Physical Therapy Visit Information Visit Information Visit Type Treatment Note Visit Start Time 09:00 Visit Stop Time 09:45 Total Visit Minutes 45 Visit Number 6 PT-OP-B Current Condition Start: 08/13/22 21:32 Freq: Status: Active Protocol: Document 08/14/22 08:20 AMB (Rec: 08/14/22 08:59 AMB [id number]) Current Condition History of Current Condition Onset Date 05/05/22 Current Complaints Painful anus s/p surgery History of Current Condition Had a colonoscopy and banded internal hemheroids and then had an anal fissure. Fissure is healed now but still having discomfort riding the bike and can linger for a while, the next day is feeling ok. No painful bowel movements currently. Is wondering if she has prolapse. Surgery for urethral sling is 15-20 years old and was having urinary leaking before that. Did have natural childbirth, no tearing or instrument assistance. Stinging in the anus frequent but not constant . Worse after riding the bike or sitting. Personal Factors Other Personal Factors That May Effect External hemorrhoid s/p Therapy/Recovery colonoscopy PT-OP-C Subjective Start: 08/13/22 21:32 Freq: Status: Active Protocol: Document 09/16/22 09:09 AMB (Rec: 09/16/22 09:48 AMB [id number]) OP-PT Subjective Patient Comments Patient Comments Biking doesn't seem to be aggravating the pain anymore. 12/11 PT-OP-I Pelvic Floor Start: 08/13/22 21:32 Freq: Status: Active Protocol: Document 08/14/22 08:15 AMB (Rec: 08/14/22 14:26 AMB [id number]) Pelvic Floor Assessment Bowel Bowel Surgery Yes: colonoscopy Pelvic Clock Inter-Rectal Assessment Good contraction for 5 sec. Pain R>L, forward flexed coccyx. Comments Pelvic Floor Comments Denies current pain with BM or constipation, but was previously painful. Scoliosis with L shoulder high. PT-OP-Q Treatments Start: 08/13/22 21:32 Freq: Status: Active Protocol: Document 09/16/22 09:00 AMB (Rec: 09/16/22 12:52 AMB [id number]) Manual Therapy Treatment Soft Tissue Mobilization 1 Body Location obturator Mobilization Type Cross-Friction,Myofascial Release,Sustained Pressure Comments rectally PT-OP-T Assessment and Plan Start: 08/13/22 21:32 Freq: Status: Active Protocol: Document 09/16/22 09:00 AMB (Rec: 09/16/22 12:52 AMB [id number]) Physical Therapy Assessment Goals One Impairment Pain Short Term Goal (STG) Karuna will move from sit to stand without pain. STG Duration 4 weeks Auto Transport Driver Goal (LTG) Karuna will go on a 20 mile bike ride without anal pain. LTG Duration 8 weeks Assessment Summary Assessment Pt is not as irritated after bike riding, but is continuing to have discomfort all day at low levels even when standing and moving, not just with sitting, continues to have more tenderness on R levator than left. Physical Therapy Plan Frequency and Duration Frequency of Treatment 2x/Week Duration of treatment (weeks) 8 Plan of Care Start Date 08/14/22 Plan of Care End Date 10/09/22 Therapeutic Interventions Therapeutic Interventions Home Exercise Program,Manual Therapy,Neuromuscular Re- education,Self-Care/Home Management,Therapeutic Activities,Therapeutic Exercises Modalities Biofeedback,Cold Pack/Ice Massage,Electric Stimulation, Hot Packs Next Visit Focus/Plan Next Note Type Treatment Note Next Visit Plan Recheck scar tissue and coccyx alignment, progress hip opening
--- NOTE | 2022-09-23 12:42 | PT.OTN ---
Current Diagnoses Other muscle spasm (09/23/22) Physical Therapy Treatment Note PT-OP-A Visit Information Start: 08/13/22 21:32 Freq: Status: Active Protocol: Document 09/23/22 09:09 AMB (Rec: 09/23/22 09:46 AMB [id number]) Out-Patient Physical Therapy Visit Information Visit Information Visit Type Treatment Note Visit Start Time 09:00 Visit Stop Time 09:45 Total Visit Minutes 45 Visit Number 7 PT-OP-B Current Condition Start: 08/13/22 21:32 Freq: Status: Active Protocol: Document 08/14/22 08:20 AMB (Rec: 08/14/22 08:59 AMB [id number]) Current Condition History of Current Condition Onset Date 05/05/22 Current Complaints Painful anus s/p surgery History of Current Condition Had a colonoscopy and banded internal hemheroids and then had an anal fissure. Fissure is healed now but still having discomfort riding the bike and can linger for a while, the next day is feeling ok. No painful bowel movements currently. Is wondering if she has prolapse. Surgery for urethral sling is 15-20 years old and was having urinary leaking before that. Did have natural childbirth, no tearing or instrument assistance. Stinging in the anus frequent but not constant . Worse after riding the bike or sitting. Personal Factors Other Personal Factors That May Effect External hemorrhoid s/p Therapy/Recovery colonoscopy PT-OP-C Subjective Start: 08/13/22 21:32 Freq: Status: Active Protocol: Document 09/23/22 09:09 AMB (Rec: 09/23/22 09:46 AMB [id number]) OP-PT Subjective Patient Comments Patient Comments 3 days where it was better maybe less than a 1/10, but worse with sitting on hard rocks for lunch for one day. PT-OP-I Pelvic Floor Start: 08/13/22 21:32 Freq: Status: Active Protocol: Document 08/14/22 08:15 AMB (Rec: 08/14/22 14:26 AMB [id number]) Pelvic Floor Assessment Bowel Bowel Surgery Yes: colonoscopy Pelvic Clock Inter-Rectal Assessment Good contraction for 5 sec. Pain R>L, forward flexed coccyx. Comments Pelvic Floor Comments Denies current pain with BM or constipation, but was previously painful. Scoliosis with L shoulder high. PT-OP-Q Treatments Start: 08/13/22 21:32 Freq: Status: Active Protocol: Document 09/23/22 09:09 AMB (Rec: 09/23/22 12:42 AMB [id number]) Manual Therapy Treatment Soft Tissue Mobilization 1 Body Location obturator Mobilization Type Cross-Friction,Myofascial Release,Sustained Pressure Comments rectally Joint Mobilizations coccyx Direction AP Grade II Body Position Sidelying PT-OP-T Assessment and Plan Start: 08/13/22 21:32 Freq: Status: Active Protocol: Document 09/23/22 09:09 AMB (Rec: 09/23/22 09:46 AMB [id number]) Physical Therapy Assessment Goals One Impairment Pain Short Term Goal (STG) Karuna will move from sit to stand without pain. STG Duration 4 weeks Economic Research Analyst Goal (LTG) Karuna will go on a 20 mile bike ride without anal pain. LTG Duration 8 weeks Assessment Summary Assessment Pt's pain is reducing, however sitting on very firm surface continues to be painful. Encouraged pt to move and deweight coccyx if sitting for an extended period of time. Physical Therapy Plan Frequency and Duration Frequency of Treatment 2x/Week Duration of treatment (weeks) 8 Plan of Care Start Date 08/14/22 Plan of Care End Date 10/09/22 Therapeutic Interventions Therapeutic Interventions Home Exercise Program,Manual Therapy,Neuromuscular Re- education,Self-Care/Home Management,Therapeutic Activities,Therapeutic Exercises Modalities Biofeedback,Cold Pack/Ice Massage,Electric Stimulation, Hot Packs Next Visit Focus/Plan Next Note Type Treatment Note Next Visit Plan Recheck scar tissue and coccyx alignment, progress hip opening
--- NOTE | 2022-10-16 15:15 | PT.OTN ---
Current Diagnoses Other muscle spasm (09/23/22) Physical Therapy Treatment Note PT-OP-A Visit Information Start: 08/13/22 21:32 Freq: Status: Active Protocol: Document 09/23/22 09:09 AMB (Rec: 09/23/22 09:46 AMB [id number]) Out-Patient Physical Therapy Visit Information Visit Information Visit Type Treatment Note Visit Start Time 09:00 Visit Stop Time 09:45 Total Visit Minutes 45 Visit Number 7 PT-OP-B Current Condition Start: 08/13/22 21:32 Freq: Status: Active Protocol: Document 08/14/22 08:20 AMB (Rec: 08/14/22 08:59 AMB [id number]) Current Condition History of Current Condition Onset Date 05/05/22 Current Complaints Painful anus s/p surgery History of Current Condition Had a colonoscopy and banded internal hemheroids and then had an anal fissure. Fissure is healed now but still having discomfort riding the bike and can linger for a while, the next day is feeling ok. No painful bowel movements currently. Is wondering if she has prolapse. Surgery for urethral sling is 15-20 years old and was having urinary leaking before that. Did have natural childbirth, no tearing or instrument assistance. Stinging in the anus frequent but not constant . Worse after riding the bike or sitting. Personal Factors Other Personal Factors That May Effect External hemorrhoid s/p Therapy/Recovery colonoscopy PT-OP-C Subjective Start: 08/13/22 21:32 Freq: Status: Active Protocol: Document 09/23/22 09:09 AMB (Rec: 09/23/22 09:46 AMB [id number]) OP-PT Subjective Patient Comments Patient Comments 3 days where it was better maybe less than a 1/10, but worse with sitting on hard rocks for lunch for one day. PT-OP-I Pelvic Floor Start: 08/13/22 21:32 Freq: Status: Active Protocol: Document 08/14/22 08:15 AMB (Rec: 08/14/22 14:26 AMB [id number]) Pelvic Floor Assessment Bowel Bowel Surgery Yes: colonoscopy Pelvic Clock Inter-Rectal Assessment Good contraction for 5 sec. Pain R>L, forward flexed coccyx. Comments Pelvic Floor Comments Denies current pain with BM or constipation, but was previously painful. Scoliosis with L shoulder high. PT-OP-Q Treatments Start: 08/13/22 21:32 Freq: Status: Active Protocol: Document 09/23/22 09:09 AMB (Rec: 09/23/22 12:42 AMB [id number]) Manual Therapy Treatment Soft Tissue Mobilization 1 Body Location obturator Mobilization Type Cross-Friction,Myofascial Release,Sustained Pressure Comments rectally Joint Mobilizations coccyx Direction AP Grade II Body Position Sidelying PT-OP-T Assessment and Plan Start: 08/13/22 21:32 Freq: Status: Active Protocol: Document 10/16/22 15:14 AMB (Rec: 10/16/22 15:15 AMB [id number]) Physical Therapy Assessment Goals One Impairment Pain Short Term Goal (STG) Karuna will move from sit to stand without pain. STG Duration 4 weeks Developmental Writing Instructor Goal (LTG) Karuna will go on a 20 mile bike ride without anal pain. LTG Duration 8 weeks Assessment Summary Assessment Pt called to cancel remaining appts as she felt that she was at a point where she could manage the pain independently. Was still having some discomfort, but rated pain around a 1/10 or less. Physical Therapy Plan Discharge Physical Therapy Discharge Reasons Patient Request
== END 2022-10-21 13:45 | disposition home or self-care (01) ==
LOC: PHYS 09:00
PROVIDERS: Family Provider Family Medicine; PCP Family Medicine; Referring Provider Surgery; Visit Provider Surgery
DX: M62.838 Other muscle spasm (principal)
CPT/HCPCS: 97140; 97162

== ENCOUNTER → 2022-12-04 08:29 | Outpatient (CLI) | payer MEDICARE, OTHER, SELFPAY ==
[2022-12-04 09:18] LABS: Add Manual Diff / Slide Review NO; Basophils Absolute Auto 0 /uL (0-100); Basophils Percent Auto 0.5 % (0-2); Eosinophils Absolute Auto 0 /uL (0-450); Eosinophils Percent Auto 0.5 % (2-4); Hematocrit 39.2 % (36-46); Hemoglobin 13.6 g/dL (12.0-16.0); Lymphocytes Absolute Auto 1700 /uL (1100-4500); Lymphocytes Percent Auto 36.9 % (25-40); Mean Corpuscular HGB Conc 34.8 % (30-36); Mean Corpuscular Hemoglobin 31.8 PG (26-34); Mean Corpuscular Volume 91.2 fL (80-100); Monocytes Absolute Auto 400 /uL (0-900); Monocytes Percent Auto 8.8 % (3-14); Neutrophils Absolute Auto 2400 /uL (1500-7000); Neutrophils Percent Auto 53.3 % (50-75); Platelet Count 213 X10^3/uL (150-400); Red Cell Distribution Width 12.7 % (11.6-14.8); White Blood Cell Count 4.5 X10^3/uL (4.5-11.0)
[2022-12-04 09:30] LABS: Alanine Aminotransferase 23 IU/L (<35); Albumin 4.3 g/dL (3.5-5.0); Albumin Globulin Ratio 1.4 (1.0-2.8); Alkaline Phosphatase 85 U/L (38-126); Aspartate Aminotransferase 28 IU/L (14-36); BUN Creatinine Ratio 11.1 (6-22); Bilirubin Total 0.4 mg/dL (0.2-1.3); Blood Urea Nitrogen 7 mg/dL (7-17); Calcium 8.8 mg/dL (8.4-10.2); Carbon Dioxide 28 mmol/L (22-32); Chloride 98 mmol/L (98-107); Cholesterol 216 mg/dL (140-199); Estimated Glomerular Filt Rate > 60 mL/min (>60); Globulin 3.1 g/dL (1.7-4.1); Glucose 98 mg/dL (80-110); HDL Cholesterol 78 mg/dL (40-60); HEMOLYSIS < 15 (0-50); LDL Cholesterol Calculated 124 mg/dL (<100); Potassium 3.8 mmol/L (3.4-5.1); Sodium 135 mmol/L (137-145); Total Protein 7.4 g/dL (6.3-8.2); Triglycerides 68 mg/dL (35-150); VLDL Cholesterol Calculated 14 mg/dL (2-30)
[2022-12-04 10:21] LABS: Thyroid Stimulating Hormone 1.81 uIU/mL (0.47-4.68)
== END ==
PROVIDERS: Family Provider Family Medicine; PCP Family Medicine; Referring Provider Family Medicine; Visit Provider Family Medicine
DX: E78.5 Hyperlipidemia, unspecified (principal)
CPT/HCPCS: 36415; 80053; 80061; 84443; 85025

== ENCOUNTER → 2023-03-30 08:01 | Outpatient (CLI) | payer MEDICARE, OTHER, SELFPAY ==
--- NOTE | 2023-03-30 | DI.ECHO.S_ITS ---
[place] [facility]---------+ [facility] +---------+ : : [address] : : : : [id number] : : : : Phone: [phone]---------+ Echocardiogram Report + + :Name: ANTOLIN DAILEY Study Date: 03/30/2023 Height: 63 in : :[facility] ReadingLocation: Weight: 124 lb : : Gender: Female BSA: 1.6 m2 : :: 1950 Age: 72 yrs BP: 156/85 mmHg: :Reason For Study: Cardiac Murmur : :Ordering Physician: Sadie, : :Gita Performed By: Sondra Trotter : :Referring: GITA INIGUEZ : + + Interpretation Summary Normal sinus rhythm. Normal LV size and wall thickness. Normal wall motion and LV systolic function. Ejection fraction is 65-70%. Stage I diastolic dysfunction. Normal chamber sizes. No significant valvular abnormalities. Estimated PA systolic pressure is 35 mmHg assuming right atrial pressure 15 mmHg. No prior study available for comparison. Procedure: A two-dimensional transthoracic echocardiogram with color flow and Doppler was performed. The study quality was technically adequate. There is no prior echocardiogram noted for this patient. The patient was in sinus rhythm with heart rates between 60 bpm during the exam. Left Ventricle: The left ventricle is normal in size. The ejection fraction is estimated to be 60-65%. Diastolic parameters suggest a relaxation abnormality of the left ventricle, consistent with probable normal filling pressures. Right Ventricle: The right ventricle is normal size. The right ventricular systolic function is normal. Atria: The left atrial size is normal. Right atrial size is normal. There is no Doppler evidence for an interatrial shunt. Mitral Valve: The mitral valve is normal. There is no mitral valve stenosis. There is mild mitral regurgitation. Aortic Valve: The aortic valve is trileaflet. The aortic valve opens well. There is no aortic valve stenosis. There is trace aortic regurgitation. Tricuspid Valve: The tricuspid valve is normal. There is no tricuspid stenosis. There is mild tricuspid regurgitation. The right ventricular systolic pressure is estimated to be at least 35 mmHg based on an estimated right atrial pressure of 15 mm Hg. Pulmonic Valve: The pulmonic valve leaflets are thin and pliable; valve motion is normal. There is no pulmonic valvular stenosis. There is trace pulmonic regurgitation. Great Vessels: The aortic root is normal size. The pulmonary artery is normal size. The IVC is of normal diameter and collapses greater than 50% with a sniff. This suggests a low right atrial pressure of 3 mm Hg. Pericardium/ Pleura There is no pericardial effusion. There is no pleural effusion. MMode/2D Measurements & Calculations LVIDd: 4.9 cm LVOT diam: 1.9 cm LVIDs: 3.1 cm Ao root diam: 2.8 cm FS: 36.7 % asc Aorta Diam: 3.1 cm EPSS: 1.0 cm IVSd: 0.90 cm LVPWd: 0.80 cm LV quinones. diameter/BSA (cm/m^2): 3.1 LV sys. diameter/BSA (cm/m^2): 2.0 LA A2 area: 14.5 cm2 RA long axis: 4.1 cm LA A4 area: 14.6 cm2 RA area: 10.7 cm2 LA length (vol): 4.4 cm RA vol: 23.4 ml LA vol: 40.9 ml RA : 14.8 ml/m2 LA vol index: 25.9 ml/m2 RVD1 (basal): 3.5 cm LVLs ap4: 5.7 cm TAPSE: 2.6 cm LVLd ap2: 7.4 cm TAPSE_phl: 2.6 cm LVLs ap2: 5.9 cm Doppler Measurements & Calculations Ao V2 max: 165.0 cm/sec LVOT Max Evaristo: 118.0 cm/sec Ao V2 mean: 114.0 cm/sec LV V1 max P.6 mmHg Ao max P.0 mmHg LV V1 VTI: 27.1 cm Ao mean P.0 mmHg VERN(I,D): 2.0 cm2 Ao V2 VTI: 37.7 cm VERN(V,D): 2.0 cm2 sev ratio: 0.72 VERN indexed to BSA (cm^2/m^2): 1.3 MV E max evaristo: 78.4 cm/sec TR max evaristo: 218.7 cm/sec MV A max evaristo: 81.0 cm/sec TR max P.1 mmHg MV E/A: 0.97 PA V2 max: 106.0 cm/sec Med Peak E' Evaristo: 6.0 cm/sec PA V2 mean: 74.5 cm/sec E/E' med: 13.1 PA mean P.0 mmHg Lat Peak E' Evaristo: 9.6 cm/sec PA pr(Accel): 18.2 mmHg E/E' lat: 8.2 E/e' average: 10.6 MV dec time: 0.35 sec SV(LVOT): 76.8 ml AV VR_phl: 0.72 VERN(VTI)/BSA_phl: 1.3 Electronically signed by: Heather Nayak M.D. on Reading Physician:03/30/2023 03:34 PM
== END ==
PROVIDERS: Family Provider Family Medicine; PCP Family Medicine; Referring Provider Family Medicine; Visit Provider Family Medicine
DX: R01.1 Cardiac murmur, unspecified (principal)
CPT/HCPCS: 93306

== ENCOUNTER → 2023-08-14 09:08 | Outpatient (CLI) | payer MEDICARE, OTHER, SELFPAY ==
--- NOTE | 2023-08-14 09:10 | DI.MG.S_ITS ---
BILATERAL DIGITAL SCREENING MAMMOGRAM 3D/2D WITH CAD: 08/14/2023 CLINICAL: Routine screening. Family history of breast cancer. Comparison is made to exams dated: 08/12/2022 mammogram, 06/28/2021 mammogram, and 05/22/2020 mammogram - [facility]. Both breasts are heterogeneously dense, which may obscure small masses (category c / 51-75% glandular tissue). Current study was also evaluated with a Computer Aided Detection (CAD) system. There are benign post operative findings in the right breast. No significant masses, calcifications, or other findings are seen in either breast. There has been no significant interval change. IMPRESSION: BENIGN There is no mammographic evidence of malignancy. A 1 year screening mammogram is recommended. Based on Tyrer-Cuzick model (a risk assessment model), the patient's lifetime risk is 31.0% and her 10 year risk is 20.8%. If a patient has an elevated risk, a more comprehensive evaluation should be considered and/or a referral to a genetic counselor. The [place] [employer], [employer], and NCCN Guidelines advise the consideration of Breast MRI as an adjunct to screening mammography in patients whose Lifetime risk to develop breast cancer is 20% or higher. This exam was interpreted at Station ID: [id number]. NOTE: For mammograms, a report in lay terms will be sent to the patient. Approximately 15% of breast malignancies will not be visualized mammographically. In the management of a palpable breast mass, a negative mammogram must not discourage biopsy of a clinically suspicious lesion. Electronically Signed By: Gadeil serrano/sahra:08/14/2023 10:39:26 letter sent: Normal Exam ACR BI-RADS Category 2: Benign Finding(s) [id number]
== END ==
PROVIDERS: PCP Family Medicine; Referring Provider Family Medicine; Visit Provider Family Medicine
DX: Z12.31 Encounter for screening mammogram for malignant neoplasm of breast (principal); Z80.3 Family history of malignant neoplasm of breast
CPT/HCPCS: 77063; 77067

== ENCOUNTER → 2023-12-31 06:40 | Outpatient (CLI) | payer MEDICARE, OTHER, SELFPAY ==
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
== END ==
LOC: US 06:41
PROVIDERS: PCP Family Medicine; Referring Provider Family Medicine; Visit Provider Family Medicine
DX: M79.89 Other specified soft tissue disorders (principal); M79.662 Pain in left lower leg
CPT/HCPCS: 93971

== ENCOUNTER → 2024-03-18 07:34 | Outpatient (CLI) | payer MEDICARE, OTHER, SELFPAY ==
[2024-03-18 09:11] LABS: Add Manual Diff / Slide Review NO; Basophils Absolute Auto 0 /uL (0-100); Basophils Percent Auto 0.4 % (0-2); Eosinophils Absolute Auto 0 /uL (0-450); Hematocrit 39.4 % (36-46); Hemoglobin 13.6 g/dL (12.0-16.0); Lymphocytes Absolute Auto 1700 /uL (1100-4500); Lymphocytes Percent Auto 36.7 % (25-40); Mean Corpuscular HGB Conc 34.6 % (30-36); Mean Corpuscular Hemoglobin 31.9 PG (26-34); Mean Corpuscular Volume 92.3 fL (80-100); Monocytes Absolute Auto 400 /uL (0-900); Monocytes Percent Auto 8.1 % (3-14); Neutrophils Absolute Auto 2400 /uL (1500-7000); Neutrophils Percent Auto 53.8 % (50-75); Platelet Count 274 X10^3/uL (150-400); Red Blood Cell Count 4.27 X10^6/uL (4.0-5.2); Red Cell Distribution Width 12.4 % (11.6-14.8); White Blood Cell Count 4.5 X10^3/uL (4.5-11.0)
[2024-03-18 09:33] LABS: Alanine Aminotransferase 18 IU/L (<35); Albumin 4.5 g/dL (3.5-5.0); Albumin Globulin Ratio 1.5 (1.0-2.8); Alkaline Phosphatase 73 U/L (38-126); Aspartate Aminotransferase 27 IU/L (14-36); BUN Creatinine Ratio 16.1 (6-22); Bilirubin Total 0.5 mg/dL (0.2-1.3); Blood Urea Nitrogen 10 mg/dL (7-17); Calcium 9.3 mg/dL (8.4-10.2); Carbon Dioxide 28 mmol/L (22-32); Chloride 103 mmol/L (98-107); Cholesterol 229 mg/dL (140-199); Estimated Glomerular Filt Rate > 60 mL/min (>60); Globulin 3.1 g/dL (1.7-4.1); Glucose 92 mg/dL (80-110); HDL Cholesterol 82 mg/dL (40-60); HEMOLYSIS < 15 (0-50); LDL Cholesterol Calculated 131 mg/dL (<100); Potassium 4.1 mmol/L (3.4-5.1); Sodium 138 mmol/L (137-145); Total Protein 7.6 g/dL (6.3-8.2); Triglycerides 79 mg/dL (35-150)
[2024-03-18 10:02] LABS: Thyroid Stimulating Hormone 1.14 uIU/mL (0.47-4.68)
== END ==
PROVIDERS: PCP Family Medicine; Referring Provider Family Medicine; Visit Provider Family Medicine
DX: E78.00 Pure hypercholesterolemia, unspecified (principal); E78.5 Hyperlipidemia, unspecified
CPT/HCPCS: 36415; 80053; 80061; 84443; 85025

== ENCOUNTER → 2024-04-07 13:38 | Outpatient (CLI) | payer MEDICARE, OTHER, SELFPAY ==
--- NOTE | 2024-04-07 13:38 | DI.RAD.S_ITS ---
PROCEDURE: XR DEXA AXIAL SKELETON INDICATIONS: OTHER SPECIFIED DISORDERS OF BONE DENSITY/STRUCTUR COMPARISON: None. FINDINGS: Lumbar Spine: Bone mineral density is 0.615 g/cm2, T score -3.9, osteoporosis. Left Hip: Bone mineral density 0.622 g/cm2, T score -2.6, osteoporosis. Left Femoral Neck: Bone mineral density is 0.475 g/cm2, T score -3.4, osteoporosis. Right Hip: Bone mineral density 0.678 g/cm2, T score -2.2, osteopenia. Right Femoral Neck: Bone mineral density 0.531 g/cm2, T score -2.9, osteoporosis. Fracture Risk Calculation (when applicable): Not reported due to osteoporosis diagnosis. IMPRESSION: Osteoporosis. Follow-up guidelines as follows: Osteoporosis: Consider a repeat DEXA and Vertebral Fracture Assessment (VFA) exam in 2 years or sooner if medically necessary, to reassess this patient's status. Osteopenia: Consider a repeat DEXA in 2-3 years to reassess this patient's status, or if there is a new clinical indication. Normal: Consider a repeat DEXA in 5 years or sooner, or if there is a new clinical indication. All treatment decisions require clinical judgment and consideration of individual patient factors, including patient preferences, comorbidities, previous drug use, risk factors not captured in the FRAX model (e.g., frailty, falls, vitamin D deficiency, increased bone turnover, interval significant decline in bone density ) and possible under- or over-estimation of fracture risk by FRAX. In addition, the NOF Guide recommends that FDA-approved medical therapies be considered in postmenopausal women and men age >= 50 years with a: * Hip or vertebral (clinical or morphometric) fracture * T-score of <=-2.5 at the spine or hip * Ten-year fracture probability by FRAX of >= 3% for hip fracture or >=20% for major osteoporotic fracture. People with diagnosed cases of osteoporosis or at high risk for fracture should have regular bone mineral density tests. For patients eligible for Medicare, routine testing is allowed once every 2 years. The testing frequency can be increased to one year for patients who have rapidly progressing disease, those who are receiving or discontinuing medical therapy to restore bone mass, or have additional risk factors. Dictated by: Darek Conner M.D. on 04/07/2024 at 15:33 Approved by: Darek Conner M.D. on 04/07/2024 at 15:34
== END ==
PROVIDERS: PCP Family Medicine; Referring Provider Family Medicine; Visit Provider Family Medicine
DX: M81.0 Age-related osteoporosis without current pathological fracture (principal)
CPT/HCPCS: 77080

== ENCOUNTER → 2024-08-25 12:37 | Outpatient (CLI) | payer MEDICARE, OTHER, SELFPAY ==
--- NOTE | 2024-08-25 | DI.MG.S_ITS ---
BILATERAL DIGITAL SCREENING MAMMOGRAM 3D/2D WITH CAD: 08/25/2024 CLINICAL: Routine screening. Family history of breast cancer. Comparison is made to exams dated: 08/14/2023 mammogram, 08/12/2022 mammogram, and 06/28/2021 mammogram - [facility]. The breasts are heterogeneously dense, which may obscure small masses (category c / 51-75% glandular tissue). Current study was also evaluated with a Computer Aided Detection (CAD) system. There are benign post operative findings in the right breast. No significant masses, calcifications, or other findings are seen in either breast. There has been no significant interval change. IMPRESSION: BENIGN There is no mammographic evidence of malignancy. A 1 year screening mammogram is recommended. Based on Tyrer-Cuzick model (a risk assessment model), the patient's lifetime risk is 29.7% and her 10 year risk is 21.4%. If a patient has an elevated risk, a more comprehensive evaluation should be considered and/or a referral to a genetic counselor. The [place] [employer], [employer], and NCCN Guidelines advise the consideration of Breast MRI as an adjunct to screening mammography in patients whose Lifetime risk to develop breast cancer is 20% or higher. This exam was interpreted at Station ID: [id number]. NOTE: For mammograms, a report in lay terms will be sent to the patient. Approximately 15% of breast malignancies will not be visualized mammographically. In the management of a palpable breast mass, a negative mammogram must not discourage biopsy of a clinically suspicious lesion. Electronically Signed By: Timothy howard/sahra:08/25/2024 17:31:37 letter sent: Normal Exam ACR BI-RADS Category 2: Benign
== END ==
PROVIDERS: PCP Family Medicine; Referring Provider Family Medicine; Visit Provider Family Medicine
DX: Z12.31 Encounter for screening mammogram for malignant neoplasm of breast (principal); Z80.3 Family history of malignant neoplasm of breast; R92.333 Mammographic heterogeneous density, bilateral breasts
CPT/HCPCS: 77063; 77067

== ENCOUNTER → 2024-09-19 08:27 | Outpatient (CLI) | payer MEDICARE, OTHER, SELFPAY ==
--- NOTE | 2024-09-19 08:29 | DI.US.S_ITS ---
PROCEDURE: US PELVIC COMPLETE INDICATIONS: CYST OF OVARY TECHNIQUE: Real-time scanning was performed of the pelvic organs, with image documentation. Additional endovaginal scanning was necessary due to incomplete visualization of the adnexal and endometrial structures by transabdominal scanning. COMPARISON: [facility], PELVIC COMPLETE, 08/13/2021, 10:49. [facility], PELVIC COMPLETE, 05/22/2020, 17:22. [facility], PELVIC COMPLETE, 03/28/2019, 10:37. [facility], PELVIC COMPLETE, 03/29/2018, 8:18. FINDINGS: Uterus: Uterus is anteverted and normal in size at 4.3 x 3.4 x 4.1 cm. The myometrium is homogeneous. The endometrium measures 4 mm in combined thickness. Ovaries: The right ovary measures 3.2 x 1.3 x 2.1 cm, with a calculated ovarian volume of 4.4 cc. The left ovary measures 1.5 x 1.2 x 1.2 cm, with a calculated ovarian volume of 1.1 cc. Within the right ovary, there are 2 simple cysts, the largest of which measures 2.4 x 2.2 x 1.3 cm. Within the left ovary, there is a 1.1 x 1.2 x 0.8 cm simple cyst. Other: No pathologic free abdominal or pelvic fluid. Tortuous and conspicuous left adnexal vessels are re-identified. IMPRESSION: 1. Bilateral simple ovarian cysts, designated as O-RADS 2 (almost certainly benign; less than 1 percent risk of malignancy). No further follow-up necessary for these findings. 2. Possible adnexal varices. We strive to produce accurate, complete, and clear reports of imaging services. To assist us in improving patient care, this report was composed using standard report templates and voice recognition software. Therefore, it may contain abnormal punctuation, insertions and/or omissions. Occasional wrong-word or sound-alike substitutions may occur. Though we review the report and make efforts to correct it, we do recommend that the report be read carefully in proper context to recognize any text inaccuracies. Dictated by: Homero Lamar M.D. on 09/20/2024 at 8:42 Approved by: Homero Lamar M.D. on 09/20/2024 at 8:48
== END ==
PROVIDERS: PCP Family Medicine; Referring Provider Family Medicine; Visit Provider Family Medicine
DX: N83.291 Other ovarian cyst, right side (principal); N83.292 Other ovarian cyst, left side
CPT/HCPCS: 76856

== ENCOUNTER → 2025-02-23 08:06 | Outpatient (CLI) | payer MEDICARE, OTHER, SELFPAY ==
[2025-02-23 09:57] LABS: Alanine Aminotransferase 25 IU/L (<35); Albumin 4.6 g/dL (3.5-5.0); Albumin Globulin Ratio 1.6 (1.0-2.8); Alkaline Phosphatase 58 U/L (38-126); Aspartate Aminotransferase 31 IU/L (14-36); BUN Creatinine Ratio 14.3 (6-22); Bilirubin Total 0.6 mg/dL (0.2-1.3); Blood Urea Nitrogen 10 mg/dL (7-17); Calcium 9.4 mg/dL (8.4-10.2); Carbon Dioxide 27 mmol/L (22-32); Chloride 101 mmol/L (98-107); Cholesterol 186 mg/dL (140-199); Estimated Glomerular Filt Rate > 60 mL/min (>60); Globulin 2.8 g/dL (1.7-4.1); Glucose 103 mg/dL (70-99); HDL Cholesterol 91 mg/dL (40-60); HEMOLYSIS < 15 (0-50); LDL Cholesterol Calculated 81 mg/dL (<100); Potassium 4.5 mmol/L (3.4-5.1); Sodium 135 mmol/L (137-145); Total Protein 7.4 g/dL (6.3-8.2); Triglycerides 70 mg/dL (35-150)
== END ==
LOC: LAB 08:07
PROVIDERS: Family Provider Family Medicine; PCP Family Medicine; Referring Provider Family Medicine; Visit Provider Family Medicine
DX: E78.2 Mixed hyperlipidemia (principal)
CPT/HCPCS: 36415; 80053; 80061

== ENCOUNTER → 2025-03-20 16:06 | Outpatient (CLI) | payer MEDICARE, OTHER, SELFPAY ==
--- NOTE | 2025-03-20 16:17 | DI.MRI.S_ITS ---
MR breast BI wo/w con: 03/20/2025. BI-RADS: 3 CLINICAL: 74-year old female for bilateral diagnostic breast MRI. No personal or first-degree family history of breast cancer. Current reported family history of breast cancer: maternal aunt and paternal aunt. PRIOR EXAMS: 08/25/2024, 08/14/2023, 08/12/2022, 06/28/2021, 05/22/2020, 02/23/2019, 12/13/2017, 10/12/2016, 09/16/2015. MRI TECHNIQUE: Bilateral breast MRI was performed on a 1.5 Zahida magnet using a dedicated breast coil with mild compression. Axial T1 and T2 STIR sequences were obtained. Dynamic contrast enhanced VIBRANT fat-suppressed sequences were obtained. Delayed sagittal high resolution or sagittal reconstructed isotropic sequence was also obtained. Subtraction images and maximum intensity projection images were obtained. The study was evaluated using Jemstep software. IV Contrast: 20 ml ProHance. FIBROGLANDULAR TISSUE Bilateral: C. Heterogeneous fibroglandular tissue. BACKGROUND PARENCHYMAL ENHANCEMENT Bilateral: Mild symmetrical background parenchymal enhancement. BREAST FINDINGS Right: There is no suspicious finding with benign findings noted. Left: Lower at 6:00, (Sagittal S:13/I:66), (Axial S:6/I:38), Middle depth, measuring 0.6 x 0.5 x 6cm: There is an oval, circumscribed enhancing mass with kinetic enhancement curve showing fast initial phase and plateau pattern on delayed phase. IMPRESSION: Right * No evidence of malignancy with benign findings. Left (Mass): Lower at 6:00, (Sagittal S:13/I:66), (Axial S:6/I:38), Middle depth, measuring 0.6 x 0.5 x 6cm * Probably Benign. RECOMMENDATIONS Left: Lower at 6:00, Middle depth * Further evaluation with diagnostic ultrasound. * Second-look ultrasound. If there is no ultrasound correlate, six-month breast MRI would be recommended. OVERALL ASSESSMENT CATEGORY BI-RADS-3: Probably Benign. ELECTRONICALLY SIGNED: Janell Stephen M.D. on 03/24/2025 at 09:41:54 AM PT Interpreting Station ID: [id number]
== END ==
PROVIDERS: Family Provider Family Medicine; PCP Family Medicine; Referring Provider Family Medicine; Visit Provider Family Medicine
DX: Z80.3 Family history of malignant neoplasm of breast (principal); Z91.89 Other specified personal risk factors, not elsewhere classified; N63.25 Unspecified lump in the left breast, overlapping quadrants
CPT/HCPCS: 77049; A9579

== ENCOUNTER → 2025-04-09 09:57 | Outpatient (CLI) | payer MEDICARE, OTHER, SELFPAY ==
--- NOTE | 2025-04-09 09:58 | DI.RAD.S_ITS ---
PROCEDURE: XR DEXA AXIAL SKELETON INDICATIONS: OSTEOPORSIS COMPARISON: [facility], , XR DEXA AXIAL SKELETON, 04/07/2024, 14:21. FINDINGS: Lumbar Spine: Bone mineral density 0.625 g/cm2, T score -3.8, no significant change. Left Femoral Neck: Bone mineral density 0.497 g/cm2, T score -3.2. Left Hip: Bone mineral density 0.641 g/cm2, T score -2.5, no significant change. Fracture Risk Calculation (when applicable): 10-year fracture risk of a major osteoporotic fracture 18 percent and of a hip fracture 6.9 percent. (T score greater or equal to -1.0 to: NORMAL) (T score from -1.1 to -2.4: OSTEOPENIA) (T score less than or equal to -2.5: OSTEOPOROSIS) IMPRESSION: Osteoporosis by WHO classification. Follow-up guidelines as follows: Osteoporosis: Consider a repeat DEXA and Vertebral Fracture Assessment (VFA) exam in 2 years or sooner if medically necessary, to reassess this patient's status. Osteopenia: Consider a repeat DEXA in 2-3 years to reassess this patient's status, or if there is a new clinical indication. Normal: Consider a repeat DEXA in 5 years or sooner, or if there is a new clinical indication. All treatment decisions require clinical judgment and consideration of individual patient factors, including patient preferences, comorbidities, previous drug use, risk factors not captured in the FRAX model (e.g., frailty, falls, vitamin D deficiency, increased bone turnover, interval significant decline in bone density ) and possible under- or over-estimation of fracture risk by FRAX. In addition, the NOF Guide recommends that FDA-approved medical therapies be considered in postmenopausal women and men age >= 50 years with a: * Hip or vertebral (clinical or morphometric) fracture * T-score of <=-2.5 at the spine or hip * Ten-year fracture probability by FRAX of >= 3% for hip fracture or >=20% for major osteoporotic fracture. Dictated by: Rizwan Miranda M.D. on 04/09/2025 at 14:55 Approved by: Rizwan Miranda M.D. on 04/09/2025 at 14:55
== END ==
PROVIDERS: Family Provider Family Medicine; PCP Family Medicine; Referring Provider Family Medicine; Visit Provider Family Medicine
DX: M81.0 Age-related osteoporosis without current pathological fracture (principal)
CPT/HCPCS: 77080

== ENCOUNTER → 2025-04-10 08:14 | Outpatient (CLI) | payer MEDICARE, OTHER, SELFPAY ==
--- NOTE | 2025-04-10 08:16 | DI.US.S_ITS ---
US breast LT limited: 04/10/2025. BI-RADS: 3 CLINICAL: 74-year old female for left diagnostic breast ultrasound that is a follow-up to diagnostic breast MRI on 03/20/2025. Tyrer-Cuzick lifetime risk of 6.4%. No personal or first-degree family history of breast cancer. Current reported family history of breast cancer: maternal aunt and paternal aunt. PRIOR EXAMS MG 08/25/2024, 08/14/2023. MRI: 03/20/2025. ULTRASOUND TECHNIQUE TARGETED Left Breast Ultrasound: Real-time ultrasound exam was performed focused to area of clinical and/or imaging concern. Real-time vital scale and color doppler imaging of the area of clinical interest was performed with image documentation. ULTRASOUND FINDINGS Left: There is no sonographic correlate for the finding on MRI. IMPRESSION: Left * Probably Benign. RECOMMENDATIONS Left * Six month followup with diagnostic breast MRI. COMMENTS: Findings and recommendations were conveyed to the patient during today's evaluation. OVERALL ASSESSMENT CATEGORY BI-RADS-3: Probably Benign. ELECTRONICALLY SIGNED: Timothy Monique M.D. on 04/10/2025 at 09:32:53 AM PT Interpreting Station ID: [id number]
== END ==
LOC: US 08:15
PROVIDERS: Family Provider Family Medicine; PCP Family Medicine; Referring Provider Family Medicine; Visit Provider Family Medicine
DX: R92.8 Other abnormal and inconclusive findings on diagnostic imaging of breast (principal); Z80.3 Family history of malignant neoplasm of breast
CPT/HCPCS: 76642

== ENCOUNTER → 2025-09-01 09:16 | Outpatient (CLI) | payer MEDICARE, OTHER, SELFPAY ==
--- NOTE | 2025-09-01 09:18 | DI.MG.S_ITS ---
MM screening mammo BI: 09/01/2025. BI-RADS: 2
== END ==
LOC: MAMMO 09:18
PROVIDERS: Family Provider Family Medicine; PCP Family Medicine; Referring Provider Family Medicine; Visit Provider Family Medicine
DX: Z12.31 Encounter for screening mammogram for malignant neoplasm of breast (principal); R92.333 Mammographic heterogeneous density, bilateral breasts; Z80.3 Family history of malignant neoplasm of breast
CPT/HCPCS: 77063; 77067

== ENCOUNTER → 2025-09-21 15:00 | Outpatient (CLI) | payer MEDICARE, OTHER, SELFPAY ==
--- NOTE | 2025-09-21 15:10 | DI.MRI.S_ITS ---
MR breast BI wo/w con: 09/21/2025. BI-RADS: 3 CLINICAL: 74-year old female for bilateral diagnostic breast MRI that is a follow-up to diagnostic breast ultrasound on 04/10/2025. No personal or first-degree family history of breast cancer. Current reported family history of breast cancer: maternal aunt and paternal aunt. The patient had a prior right breast biopsy. PRIOR EXAMS Mammogram(s): 09/01/2025. Breast Ultrasound(s): 04/10/2025. Breast MRI(s): 03/20/2025. Eight Other Exams on 08/25/2024, 08/14/2023, 08/12/2022, 06/28/2021, 05/22/2020, 02/23/2019, 12/13/2017, 10/12/2016. MRI TECHNIQUE Bilateral breast MRI was performed on a 1.5 Zahida magnet using a dedicated breast coil with mild compression. Axial T1 and T2 STIR sequences were obtained. Dynamic contrast enhanced VIBRANT fat-suppressed sequences were obtained. Delayed sagittal high resolution or sagittal reconstructed isotropic sequence was also obtained. Subtraction images and maximum intensity projection images were obtained. The study was evaluated using Maintenance Assistant software. IV Contrast: 20 ml ProHance. FIBROGLANDULAR TISSUE Bilateral: C. Heterogeneous fibroglandular tissue. BACKGROUND PARENCHYMAL ENHANCEMENT Bilateral: Mild symmetrical background parenchymal enhancement. BREAST FINDINGS Right: There is no suspicious mass or non-mass enhancement. No suspicious architectural distortion. No skin or nipple abnormalities. No internal mammary chain or axillary adenopathy. Left: at 6:00, (Axial S:6/I:43), Middle depth, measuring 0.6 x 0.4cm: There is an oval, circumscribed homogeneously enhancing mass that is not significantly changed in size, extent, appearance, signal or enhancement characteristics. No other suspicious mass, non-mass enhancement, or architectural distortion. No axillary or internal mammary chain adenopathy. CHEST FINDINGS Visualized portions of the chest appear unremarkable. ABDOMEN FINDINGS Visualized portions of the upper abdomen appear unremarkable. IMPRESSION: Right * No evidence of malignancy. Left (Mass): at 6:00, (Axial S:6/I:43), Middle depth, measuring 0.6 x 0.4cm * Probably Benign. RECOMMENDATIONS Left: at 6:00, Middle depth * Six month followup with diagnostic breast MRI. OVERALL ASSESSMENT CATEGORY BI-RADS-3: Probably Benign. ELECTRONICALLY SIGNED: Gadiel Lozano M.D. on 09/22/2025 at 08:35:25 PM PT Interpreting Station ID: [id number]
== END ==
LOC: MRI 15:05
PROVIDERS: Family Provider Family Medicine; PCP Family Medicine; Referring Provider Family Medicine; Visit Provider Family Medicine
DX: R92.8 Other abnormal and inconclusive findings on diagnostic imaging of breast (principal); N63.24 Unspecified lump in the left breast, lower inner quadrant; R92.333 Mammographic heterogeneous density, bilateral breasts; Z15.01 Genetic susceptibility to malignant neoplasm of breast; Z80.3 Family history of malignant neoplasm of breast; Z91.89 Other specified personal risk factors, not elsewhere classified
CPT/HCPCS: 77049; A9579